=== PATIENT | female | born 1960 | race African-American/Black ===

== ENCOUNTER 2016-10-17 08:54 | Inpatient (IN) | payer MEDICARE, OTHER ==
[~2016-10-17] VITALS: Ht 165.1 cm; Wt 142.9 kg
[~2016-10-17 08:54] MED LIST: ASPI81TA2 PO; ATOR20TA PO; BENA40TA2 PO; BLOO-367 INJ; CLON0.1T PO; FAMO20TA8 PO; FLUT1DIS3 INH; GABA300C PO; HYDR25TA4 PO; Home Oxygen NS; INSU100V13 SQ; INSU100V27 INJ; METF500T4 PO; PRED20TA PO; TIOT18CA3 INH
[2016-10-17] MEDS ORDERED: FUROSEMIDE 20 MG/2 ML VIAL ONE (09:15)
[2016-10-17 09:29] LABS: BASOPHILS % (AUTO) 0.2 % (0.0-2.0); DIFF TOTAL % 100 %; EOSINOPHILS # (AUTO) 0.1 /CMM (0.0-0.7); EOSINOPHILS % (AUTO) 2.2 % (0.0-6.0); HEMATOCRIT 37 % (33-45); HEMOGLOBIN 11.6 g/dL (11.5-14.8); LYMPHOCYTES # (AUTO) 0.9 /CMM (0.8-4.8); LYMPHOCYTES % (AUTO) 13.1 % (20.0-44.0); MEAN CORPUSCULAR HEMOGLOBIN 29 PG (26.0-33.0); MEAN CORPUSCULAR HGB CONC 32 g/dl (31.0-36.0); MEAN CORPUSCULAR VOLUME 90 fL (82-100); MONOCYTES # (AUTO) 0.4 /CMM (0.1-1.30); MONOCYTES % (AUTO) 6.6 % (2.0-12.0); NEUTROPHILS # (AUTO) 5.3 /CMM (1.8-8.9); NEUTROPHILS % (AUTO) 77.9 % (43.0-81.0); PLATELET COUNT (AUTO) 207 /CMM (150-450); RED BLOOD CELL COUNT(AUTO) 4.05 MIL/uL (4.0-5.2); WHITE BLOOD COUNT (AUTO) 6.8 K/uL (4.3-11.0)
[2016-10-17] MEDS ORDERED: FUROSEMIDE 40 MG/4 ML VIAL IV ONE (09:30)
[2016-10-17 09:46] LABS: TROPONIN I < 0.017 ng/mL (0.00-0.056)
[2016-10-17 09:47] LABS: INR 1.01 (0.87-1.13); PROTHROMBIN TIME 10.9 SECS (9.5-12.7)
[2016-10-17 09:51] LABS: ALANINE AMINOTRANSFERASE 16 U/L (12-78); ALBUMIN 3.1 g/dL (3.4-5.0); ANION GAP 5 (5-14); ASPARTATE AMINOTRANSFERASE 20 U/L (15-37); BILIRUBIN,DIRECT 0.1 mg/dL (0.0-0.2); BILIRUBIN,TOTAL 0.2 mg/dL (0.2-1.0); CALCIUM, SERUM 9.1 mg/dL (8.5-10.1); CHLORIDE 97 mmol/L (98-107); CREATININE 0.8 mg/dL (0.6-1.3); GFR 89 mL/min (>60); GLUCOSE 168 mg/dL (74-106); INDIRECT BILIRUBIN 0.1 mg/dL (0.0-1.1); SODIUM SERUM 141 mmol/L (136-145); TOTAL PROTEIN, SERUM 7.3 g/dL (6.4-8.2); UREA NITROGEN, BLOOD 12 mg/dL (7-18)
[2016-10-17 09:56] LABS: CARBON DIOXIDE 41 mmol/L (21-32)
[2016-10-17] MEDS ORDERED: DIPH25CA6 PO (10:11)
[2016-10-17] MEDS ORDERED: MOME13HF2 IH (10:11)
[2016-10-17] MEDS ORDERED: INSU100V27 SQ (10:11)
[2016-10-17] MEDS ORDERED: ALBU18HF2 IH (10:11)
[2016-10-17] MEDS ORDERED: TIOT18CA3 IH (10:11)
[2016-10-17] MEDS ORDERED: FURO20TA4 PO (10:11)
[2016-10-17] MEDS ORDERED: NITROGLYCERIN PACKET 1 GM PACKET ONE (10:28)
[2016-10-17] MEDS ORDERED: NITROGLYCERIN PACKET 1 GM PACKET TD ONE (10:30)
[2016-10-17 10:46] LABS: ABG HCO3 45.3 mmol/L; ABG PCO2 82.1 mmHg (35.0-45.0); ABG PO2 63.4 mmHg (75.0-100.0); ABG TOTAL HEMOGLOBIN 12.7 G/dL (12.0-16.0); ALLEN TEST Pass; AaDO2 39.4 mmHg; O2Hb 89.1 % (94.0-97.0)
[2016-10-17] MEDS ORDERED: diphenhydrAMINE HCL 25 MG CAPSULE PO PRN (11:30)
[2016-10-17] MEDS ORDERED: MAGNESIUM HYDROXIDE 30 ML UDC PO PRN (11:30)
[2016-10-17] MEDS ORDERED: MAG HYDROX/AL HYDROX/SIMETH 30 ML UDC PO PRN (11:30)
[2016-10-17] MEDS ORDERED: HYDROCODONE/APAP 5/325MG 1 EACH TABLET PO PRN (11:30)
[2016-10-17] MEDS ORDERED: Z GUARD REMEDY 2 OZ OINT TP PRN (11:30)
[2016-10-17] MEDS: METFORMIN 500 MG TABLET PO SCH ×2 (11:30→17:00)
[2016-10-17] MEDS ORDERED: ONDANSETRON HCL/PF 4 MG/2 ML VIAL IVP PRN (11:30)
[2016-10-17] MEDS ORDERED: ZOLPIDEM TARTRATE 5 MG TABLET PO PRN (11:30)
[2016-10-17 12:00] VITALS: BP 124/67
[2016-10-17] MEDS ORDERED: BLOOD SUGAR DIAGNOSTIC 1 EACH STRIP IN SCH ×2 (12:00→17:30)
[2016-10-17] MEDS: IPRATROPIUM NEB FS 0.5 MG/2.5 ML AMPUL.NEB NEB SCH ×3 (12:06→20:12)
[2016-10-17] MEDS: ALBUTEROL FS 2.5 MG/0.5 ML VIAL.NEB NEB SCH ×3 (12:06→20:12)
[2016-10-17 12:26] VITALS: BP 124/67
[2016-10-17] MEDS ORDERED: acetaZOLAMIDE 250 MG TABLET PO ONE (13:30)
[2016-10-17] MEDS: INSULIN LISPRO/ASPART 100 UNIT/ML CARTRIDGE SQ SCH ×2 (13:30→17:00)
[2016-10-17] MEDS: ATORVASTATIN 10 MG TABLET PO SCH (13:53)
[2016-10-17] MEDS: ENOXAPARIN SODIUM 40 MG/0.4 ML DISP.SYRIN SQ SCH (13:53)
[2016-10-17] MEDS: GABAPENTIN 300 MG CAPSULE PO SCH ×2 (13:54→17:23)
[2016-10-17] MEDS: ASPIRIN 81 MG TAB.CHEW PO SCH (13:54)
[2016-10-17] MEDS: FUROSEMIDE 40 MG/4 ML VIAL IV SCH ×3 (13:54→17:32)
[2016-10-17] MEDS: PANTOPRAZOLE 40 MG TABLET.DR PO SCH (13:54)
[2016-10-17] MEDS ORDERED: DEXTROSE 50%-WATER 50 ML DISP.SYRIN IV PRN ×3 (15:00→16:00)
[2016-10-17] MEDS ORDERED: *INSULIN REGULAR(HUMULIN R)HUM 100 UNIT/ML VIAL SQ PRN (15:00)
[2016-10-17] MEDS ORDERED: INSULIN REGULAR, HUMAN 100 UNIT/ML 3 ML VIAL SQ PRN ×2 (15:00→16:00)
[2016-10-17 16:00] VITALS: BP 125/79
[2016-10-17 16:53] VITALS: BP 125/79
[2016-10-17] MEDS: ACETAMINOPHEN 325 MG TABLET PO PRN (17:24)
[2016-10-17] MEDS ORDERED: BLOOD SUGAR DIAGNOSTIC 1 EACH STRIP VI SCH (17:30)
[2016-10-17] MEDS: BLOOD SUGAR DIAGNOSTIC 1 EACH STRIP IN SCH ×2 (17:40→22:28)
[2016-10-17 20:00] VITALS: BP 109/72
[2016-10-17] MEDS: INSULIN REGULAR, HUMAN 100 UNIT/ML 3 ML VIAL SQ PRN (22:22)
[2016-10-17] MEDS: INSULIN DETEMIR 100 UNIT/ML CARTRIDGE SQ SCH (22:23)
[2016-10-18] VITALS: BP 141/76
[2016-10-18] MEDS: IPRATROPIUM NEB FS 0.5 MG/2.5 ML AMPUL.NEB NEB SCH ×6 (00:10→20:22)
[2016-10-18] MEDS: ALBUTEROL FS 2.5 MG/0.5 ML VIAL.NEB NEB SCH ×6 (00:10→20:22)
[2016-10-18] MEDS: ACETAMINOPHEN 325 MG TABLET PO PRN ×2 (03:53→18:04)
[2016-10-18 04:00] VITALS: BP 141/84
[2016-10-18] MEDS: PANTOPRAZOLE 40 MG TABLET.DR PO SCH ×2 (06:44→08:36)
[2016-10-18 08:00] VITALS: BP 134/79
[2016-10-18] MEDS: BLOOD SUGAR DIAGNOSTIC 1 EACH STRIP IN SCH ×4 (08:33→21:22)
[2016-10-18] MEDS: FUROSEMIDE 40 MG/4 ML VIAL IV SCH ×2 (08:34→16:45)
[2016-10-18] MEDS: BENAZEPRIL HCL 20 MG TABLET PO SCH (08:35)
[2016-10-18] MEDS: METFORMIN 500 MG TABLET PO SCH ×2 (08:35→16:45)
[2016-10-18] MEDS: ENOXAPARIN SODIUM 40 MG/0.4 ML DISP.SYRIN SQ SCH (08:35)
[2016-10-18] MEDS: ASPIRIN 81 MG TAB.CHEW PO SCH (08:36)
[2016-10-18] MEDS: GABAPENTIN 300 MG CAPSULE PO SCH ×3 (08:36→16:45)
[2016-10-18] MEDS: ATORVASTATIN 10 MG TABLET PO SCH (08:38)
[2016-10-18] MEDS: INSULIN REGULAR, HUMAN 100 UNIT/ML 3 ML VIAL SQ PRN ×2 (08:51→21:23)
[2016-10-18] MEDS: INSULIN LISPRO/ASPART 100 UNIT/ML CARTRIDGE SQ SCH ×3 (08:53→17:00)
[2016-10-18] MEDS: INSULIN DETEMIR 100 UNIT/ML CARTRIDGE SQ SCH ×2 (08:54→20:49)
[2016-10-18 09:16] LABS: BASOPHILS % (AUTO) 0.2 % (0.0-2.0); DIFF TOTAL % 100 %; EOSINOPHILS # (AUTO) 0.1 /CMM (0.0-0.7); HEMATOCRIT 38 % (33-45); HEMOGLOBIN 11.7 g/dL (11.5-14.8); LYMPHOCYTES % (AUTO) 19.7 % (20.0-44.0); MEAN CORPUSCULAR HEMOGLOBIN 28 PG (26.0-33.0); MEAN CORPUSCULAR HGB CONC 31 g/dl (31.0-36.0); MEAN CORPUSCULAR VOLUME 90 fL (82-100); MONOCYTES # (AUTO) 0.5 /CMM (0.1-1.30); MONOCYTES % (AUTO) 9.3 % (2.0-12.0); NEUTROPHILS # (AUTO) 3.4 /CMM (1.8-8.9); NEUTROPHILS % (AUTO) 68.8 % (43.0-81.0); PLATELET COUNT (AUTO) 212 /CMM (150-450); RED BLOOD CELL COUNT(AUTO) 4.19 MIL/uL (4.0-5.2); WHITE BLOOD COUNT (AUTO) 4.9 K/uL (4.3-11.0)
[2016-10-18 09:31] LABS: ALBUMIN 3.1 g/dL (3.4-5.0); BILIRUBIN,TOTAL 0.2 mg/dL (0.2-1.0); CALCIUM, SERUM 9.2 mg/dL (8.5-10.1); CREATININE 0.6 mg/dL (0.6-1.3); PHOSPHORUS 3.9 mg/dL (2.5-4.9); TOTAL PROTEIN, SERUM 7.7 g/dL (6.4-8.2)
[2016-10-18] MEDS: NEOMY SULF/BACITRAC ZN/POLY 15 GM TUBE TP SCH (11:00)
[2016-10-18] MEDS ORDERED: acetaZOLAMIDE 250 MG TABLET PO ONE (12:30)
[2016-10-18 16:00] VITALS: BP 138/86
[2016-10-19] MEDS: ACETAMINOPHEN 325 MG TABLET PO PRN (02:07)
[2016-10-19] MEDS: BLOOD SUGAR DIAGNOSTIC 1 EACH STRIP IN SCH ×2 (07:04→12:23)
[2016-10-19] MEDS: ALBUTEROL FS 2.5 MG/0.5 ML VIAL.NEB NEB SCH ×2 (07:42→11:27)
[2016-10-19] MEDS: IPRATROPIUM NEB FS 0.5 MG/2.5 ML AMPUL.NEB NEB SCH ×2 (07:42→11:27)
[2016-10-19 08:00] VITALS: BP 99/63
[2016-10-19 08:08] VITALS: BP 99/63
[2016-10-19] MEDS: INSULIN LISPRO/ASPART 100 UNIT/ML CARTRIDGE SQ SCH ×2 (09:00→12:23)
[2016-10-19] MEDS: FUROSEMIDE 40 MG/4 ML VIAL IV SCH (09:06)
[2016-10-19] MEDS: METFORMIN 500 MG TABLET PO SCH (09:06)
[2016-10-19] MEDS: ASPIRIN 81 MG TAB.CHEW PO SCH (09:06)
[2016-10-19] MEDS: GABAPENTIN 300 MG CAPSULE PO SCH ×2 (09:08→12:22)
[2016-10-19] MEDS: ATORVASTATIN 10 MG TABLET PO SCH (09:08)
[2016-10-19] MEDS: NEOMY SULF/BACITRAC ZN/POLY 15 GM TUBE TP SCH (09:09)
[2016-10-19] MEDS: ENOXAPARIN SODIUM 40 MG/0.4 ML DISP.SYRIN SQ SCH (09:12)
[2016-10-19] MEDS: INSULIN DETEMIR 100 UNIT/ML CARTRIDGE SQ SCH (09:39)
[2016-10-19 09:49] VITALS: BP 132/82
[2016-10-19] MEDS: BENAZEPRIL HCL 20 MG TABLET PO SCH (09:49)
== END 2016-10-19 15:21 | disposition home or self-care (01) | DRG 291 ==
LOC: ER 08:56 → TELE1 11:04 → MEDSG1 10-18 10:39
PROVIDERS: ADMIT Internal Medicine; ATTEND Internal Medicine
DX: I11.0 Hypertensive heart disease with heart failure (principal); J96.01 Acute respiratory failure with hypoxia; E43 Unspecified severe protein-calorie malnutrition; J44.1 Chronic obstructive pulmonary disease with (acute) exacerbation; Z68.43 Body mass index [BMI] 50.0-59.9, adult; E66.01 Morbid (severe) obesity due to excess calories; E11.9 Type 2 diabetes mellitus without complications; E78.5 Hyperlipidemia, unspecified; Z99.81 Dependence on supplemental oxygen; F17.210 Nicotine dependence, cigarettes, uncomplicated; I50.33 Acute on chronic diastolic (congestive) heart failure
CPT/HCPCS: 36415; 36600; 71010-TC; 80048-TC; 80053-TC; 80061-TC; 80076-TC; 82947-TC; 82962-TC; 83735-TC; 83880; 84100-TC; 84484-TC; 85025-TC; 85730-TC; 93307-TC; 94799-TC; 97001-TC; A4606; J1650; J1815; J1940; Z7610

== ENCOUNTER 2017-01-28 15:58 | Emergency (ER) | payer MEDICARE, OTHER ==
[~2017-01-28] VITALS: Ht 165.1 cm; Wt 149.7 kg
[~2017-01-28 15:58] MED LIST changes: +ALBU18HF2 IH; -CLON0.1T PO; +DIPH25CA6 PO; -FLUT1DIS3 INH; -HYDR25TA4 PO; -INSU100V13 SQ; -INSU100V27 INJ; +INSU100V27 SQ; +INSU100V7 SQ; +MOME13HF2 IH; -PRED20TA PO; +TIOT18CA3 IH; -TIOT18CA3 INH
--- NOTE | 2017-01-28 16:10 | NUR ---
Pt bib self, cc: SOB since yesterday, coughing and congestion, hx of copd productive cough. Placed on monitor. Awaiting md order.
[2017-01-28] MEDS ORDERED: Magnesium 1GM/D5W 100ML PREMIX 200 ML IV ONE ×2 (16:14→16:35)
[2017-01-28] MEDS ORDERED: ALBUTEROL FS 2.5 MG/3 ML VIAL.NEB ONE (16:15)
[2017-01-28] MEDS ORDERED: IPRATROPIUM NEB FS 0.5 MG/2.5 ML AMPUL.NEB ONE (16:15)
--- NOTE | 2017-01-28 16:15 | NUR ---
RWIRST #18 IV ACCESS. BLOOD SAMPLE COLLECTED SENT TO LAB
[2017-01-28] MEDS ORDERED: ALBUTEROL FS 2.5 MG/3 ML VIAL.NEB NEB ONE (16:30)
[2017-01-28] MEDS ORDERED: methylPREDNISolone SOD SUCC 125 MG/2ML VIAL IV ONE (16:30)
[2017-01-28] MEDS ORDERED: IPRATROPIUM NEB FS 0.5 MG/2.5 ML AMPUL.NEB NEB ONE (16:30)
[2017-01-28] MEDS ORDERED: IV SET PRIMARY PUMP SET 1 EA INFUS.SET MC ONE ×2 (16:34→17:13)
[2017-01-28] MEDS ORDERED: methylPREDNISolone SOD SUCC 125 MG/2ML VIAL ONE (16:34)
[2017-01-28 16:41] LABS: BASOPHILS % (AUTO) 0.4 % (0.0-2.0); EOSINOPHILS # (AUTO) 0.3 /CMM (0.0-0.7); EOSINOPHILS % (AUTO) 3.6 % (0.0-6.0); HEMATOCRIT 37 % (33-45); HEMOGLOBIN 11.6 g/dL (11.5-14.8); LYMPHOCYTES % (AUTO) 21.9 % (20.0-44.0); MEAN CORPUSCULAR HEMOGLOBIN 29 PG (26.0-33.0); MEAN CORPUSCULAR HGB CONC 32 g/dl (31.0-36.0); MEAN CORPUSCULAR VOLUME 91 fL (82-100); MONOCYTES # (AUTO) 0.4 /CMM (0.1-1.30); MONOCYTES % (AUTO) 4.6 % (2.0-12.0); NEUTROPHILS # (AUTO) 6.2 /CMM (1.8-8.9); NEUTROPHILS % (AUTO) 69.5 % (43.0-81.0); PLATELET COUNT (AUTO) 211 /CMM (150-450); RDW COEFFICIENT OF VARIATION 16.6 (11.5-15.0); WHITE BLOOD COUNT (AUTO) 8.9 K/uL (4.3-11.0)
--- NOTE | 2017-01-28 16:46 | NUR ---
XRAY AT BEDSIDE
[2017-01-28 16:52] LABS: CALCIUM, SERUM 8.8 mg/dL (8.5-10.1); CREATININE 0.8 mg/dL (0.6-1.3); POTASSIUM 3.8 mmol/L (3.5-5.1)
[2017-01-28] MEDS ORDERED: AZITHROMYCIN 250 MG TABLET PO ONE (17:00)
[2017-01-28] MEDS ORDERED: AZITHROMYCIN 250 MG TABLET ONE (17:17)
--- NOTE | 2017-01-28 17:53 | NUR ---
Patient discharged to home in stable condition. Written and verbal after care instructions given. Patient verbalizes understanding of instruction. Prescription given to patient.
--- NOTE | 2017-01-28 17:53 | NUR ---
IV removed. Catheter intact and site benign. Pressure and 4x4 applied to site. No bleeding noted.
[2017-01-28 17:54] VITALS: BP 131/83
== END 2017-01-28 17:55 | disposition home or self-care (01) ==
LOC: ER 16:01
DX: J44.1 Chronic obstructive pulmonary disease with (acute) exacerbation (principal); I10 Essential (primary) hypertension; E11.9 Type 2 diabetes mellitus without complications; E66.01 Morbid (severe) obesity due to excess calories; F17.210 Nicotine dependence, cigarettes, uncomplicated; Z79.4 Long term (current) use of insulin; Z79.82 Long term (current) use of aspirin
CPT/HCPCS: 36415; 71010; 80048; 85025; 93005; 94644; 96361; 96374; 99285; A4606; J2930; J3475; Z7610

== ENCOUNTER 2017-03-12 17:40 | Inpatient (IN) | payer MEDICARE, OTHER ==
[~2017-03-12] VITALS: Ht 165.1 cm; Wt 146.1 kg
--- NOTE | 2017-03-12 04:00 | NUR ---
tele/rn notes PATIENT REFUSED TO HAVE IV REINSERTION AT THIS TIME STATED WOULD LIKE TO HAVE IT DONE LATER AFTER BREAKFAST.
[2017-03-12] MEDS ORDERED: FUROSEMIDE 100 MG/10 ML VIAL ONE (17:54)
[2017-03-12] MEDS ORDERED: FUROSEMIDE 40 MG/4 ML VIAL IV ONE (18:00)
--- NOTE | 2017-03-12 18:05 | NUR ---
PT PRESENTS TO ER C/O FEELING WEAK AND SHAKY S/P GLF TODAY, ATRAUMATIC. PT ALSO FEELS SOB WITH MORE O2 USAGE THAN USUAL. ON 2L AT BASELINE. RESP EVEN BUT LABORED. O2 SAT 99% ON 6L VIA NC. REPORTS TROUBLE BREATHING WHILE LYING DOWN. PT HAS GENERALIZED EDEMA. DENIES PAIN. DENIES N/V/D. IN ER BED 12 ON MONITOR.
[2017-03-12 18:16] LABS: CHLORIDE 100 mmol/L (98-107); CREATININE 0.9 mg/dL (0.6-1.3); GLUCOSE 116 mg/dL (74-106); POTASSIUM 3.7 mmol/L (3.5-5.1); SODIUM SERUM 142 mmol/L (136-145); UREA NITROGEN, BLOOD 14 mg/dL (7-18)
[2017-03-12 18:18] LABS: INR 0.96 (0.87-1.13)
[2017-03-12 18:24] LABS: TROPONIN I < 0.017 ng/mL (0.00-0.056)
[2017-03-12 18:33] LABS: BASOPHILS # (AUTO) 0.1 /CMM (0.0-0.2); BASOPHILS % (AUTO) 1.1 % (0.0-2.0); EOSINOPHILS # (AUTO) 0.3 /CMM (0.0-0.7); EOSINOPHILS % (AUTO) 3.5 % (0.0-6.0); HEMATOCRIT 40 % (33-45); HEMOGLOBIN 12.8 g/dL (11.5-14.8); LYMPHOCYTES # (AUTO) 1.6 /CMM (0.8-4.8); LYMPHOCYTES % (AUTO) 21.8 % (20.0-44.0); MEAN CORPUSCULAR HEMOGLOBIN 29 PG (26.0-33.0); MEAN CORPUSCULAR HGB CONC 32 g/dl (31.0-36.0); MEAN CORPUSCULAR VOLUME 91 fL (82-100); MONOCYTES # (AUTO) 0.4 /CMM (0.1-1.30); MONOCYTES % (AUTO) 5.1 % (2.0-12.0); NEUTROPHILS % (AUTO) 68.5 % (43.0-81.0); PLATELET COUNT (AUTO) 171 /CMM (150-450); RDW COEFFICIENT OF VARIATION 15.8 (11.5-15.0); RED BLOOD CELL COUNT(AUTO) 4.41 MIL/uL (4.0-5.2); WHITE BLOOD COUNT (AUTO) 7.4 K/uL (4.3-11.0)
--- NOTE | 2017-03-12 18:33 | NUR ---
SANTIAGO CATH 16FR INSERTED. 70ML CLEAR YELLOW URINE DRAINED IMMEDIATELY. SAMPLE COLLECTED.
[2017-03-12 18:34] LABS: CALCIUM, SERUM 9.1 mg/dL (8.5-10.1)
[2017-03-12 18:37] LABS: CARBON DIOXIDE 43 mmol/L (21-32)
[2017-03-12] MEDS ORDERED: CT SWABBABLE VALVE TRANS SET 1 EA INFUS.SET MC ONE (19:19)
[2017-03-12] MEDS ORDERED: IV NS 0.9% 250 ML IV ONE (19:19)
[2017-03-12] MEDS ORDERED: IOHEXOL-350 100 ML VIAL IV ONE (19:19)
--- NOTE | 2017-03-12 19:40 | NUR ---
RESTING QUIETLY, NAD NOTED. AWAITING CT. ALL NEEDS ATTENDED TO.
--- NOTE | 2017-03-12 19:53 | NUR ---
PT TRANSPORTED TO CT IN STABLE CONDITION
--- NOTE | 2017-03-12 21:25 | NUR ---
RETING QUIETLY, NAD NOTED. O2 REDUCED TO 4L. NAD NOTED.
--- NOTE | 2017-03-12 21:41 | NUR ---
REPORT GIVEN TO LINDA WORTHINGTON FOR ADMISSION
--- NOTE | 2017-03-12 22:21 | NUR ---
PAGED POUCH MAKING MACHINE OPERATOR FOR PANEL DR NATARAJAN
--- NOTE | 2017-03-12 22:26 | NUR ---
DR LEON ON PHONE WITH DR NATARAJAN
[2017-03-12 22:30] VITALS: BP 131/71
--- NOTE | 2017-03-12 22:30 | NUR ---
tele/tn notes PATIENT RECEIVED ON A GURNEY , ALERT, ORIENTED X3 CAN TRANSFER TO [facility] TO BED W ASSISTANCE. ABLE TO VERBALIZE NEEDS AND ON TELE MONITORING AT SR 94. MONITORING FOR ANY S/S OF SOB OR DISTRESS. ON 4L OXYGEN VIA NC AT 98%. ON SANTIAGO CATHETER W/ OUTPUT 1425 W/ CLEAR YELLOW URINE COLOR. PATIENT W/ DX OF CHF EXACERBATION W/ GLF/ W/ HX OF NEUROPATHY, HTN, COPD, DM, CHF.ROOM ORIENTATION. BELONGINGS CHECKED. OBSERVED SWOLLEN BLE ANKLE SWOLLEN. MORBID OBESE. WILL CONTINUE TO MONITOR.
--- NOTE | 2017-03-12 22:35 | NUR ---
PT TRANSPORTED TO [facility] IN STABLE CONDITION VIA ACLS PROTOCOL. VSS. NAD NOTED.
[2017-03-12 23:00] VITALS: BP_SYST 131; BP_SYST 146; BP_DIAS 69; BP_DIAS 71
[2017-03-12] MEDS ORDERED: ALBUTEROL FS 2.5 MG/0.5 ML VIAL.NEB NEB ONE (23:00)
[2017-03-12] MEDS ORDERED: IPRATROPIUM NEB FS 0.5 MG/2.5 ML AMPUL.NEB NEB ONE (23:00)
[2017-03-12 23:06] LABS: ALBUMIN 3.5 g/dL (3.4-5.0); BILIRUBIN,DIRECT 0.1 mg/dL (0.0-0.2); BILIRUBIN,TOTAL 0.2 mg/dL (0.2-1.0); TOTAL PROTEIN, SERUM 7.8 g/dL (6.4-8.2)
[2017-03-12] MEDS ORDERED: MORPHINE SULFATE INJ 2 MG/ML DISP.SYRIN IV PRN (23:30)
[2017-03-12] MEDS ORDERED: HYDROCODONE/APAP 5/325MG 1 EACH TABLET PO PRN (23:30)
[2017-03-12] MEDS ORDERED: LEVOFLOXACIN 750 MG /D5W 150ML 750 MG in PREMIX 1 EA IV SCH (23:30)
[2017-03-12] MEDS ORDERED: *INSULIN REGULAR(HUMULIN R)HUM 100 UNIT/ML VIAL SQ PRN (23:30)
[2017-03-12] MEDS: INSULIN DETEMIR 100 UNIT/ML CARTRIDGE SQ SCH (23:30)
[2017-03-12] MEDS ORDERED: ENOXAPARIN SODIUM 40 MG/0.4 ML DISP.SYRIN SQ SCH (23:30)
[2017-03-12] MEDS ORDERED: MAGNESIUM HYDROXIDE 30 ML UDC PO PRN (23:30)
[2017-03-12] MEDS ORDERED: IPRATROPIUM NEB FS 0.5 MG/2.5 ML AMPUL.NEB NEB PRN (23:30)
[2017-03-12] MEDS: GABAPENTIN 300 MG CAPSULE PO SCH (23:30)
[2017-03-12] MEDS ORDERED: DEXTROSE 50%-WATER 50 ML DISP.SYRIN IV PRN (23:30)
[2017-03-12] MEDS ORDERED: ONDANSETRON HCL/PF 4 MG/2 ML VIAL IVP PRN (23:30)
[2017-03-12] MEDS ORDERED: ALBUTEROL FS 2.5 MG/3 ML VIAL.NEB NEB PRN (23:30)
[2017-03-12] MEDS ORDERED: ENOXAPARIN SODIUM 40 MG/0.4 ML DISP.SYRIN SQ ONE (23:50)
[2017-03-13] VITALS (7 sets, daily range): BP systolic 123–146; BP diastolic 56–79
[2017-03-13] MEDS: BLOOD SUGAR DIAGNOSTIC 1 EACH STRIP IN SCH ×5 (00:06→21:07)
[2017-03-13] MEDS ORDERED: LEVOFLOXACIN 750 MG /D5W 150ML 150 ML IV ONE (00:23)
[2017-03-13] MEDS ORDERED: IV SET PRIMARY PUMP SET 1 EA INFUS.SET MC ONE (00:47)
[2017-03-13] MEDS ORDERED: IV NS 0.9% 100 ML IV ONE (00:47)
[2017-03-13] MEDS ORDERED: SECONDARY IV SET 1 EA INFUS.SET MC ONE ×2 (00:47→12:00)
--- NOTE | 2017-03-13 01:00 | NUR ---
TELE/RN NOTES MD MADE ROUNDS , PATIENT WAS SEEN DISCUSSED CARE. MD WAS MADE AWARE THAT COVERAGE FOR INSULIN WAS WITHELD PER PATIENT REQUEST, AND LEVEMIR.PATIENT REFUSED TO TAKE ORAL PILL OF GABAPENTIN. ALTHOUGH PATIENT RECEIVED LOVENOX INJECTION AND RECEIVED IV ATB FOR TONIGHT. SANTIAGO TO BE KEPT FOR THE NIGHT AND WILL CHECK IN AM.
--- NOTE | 2017-03-13 03:34 | NUR ---
MS/RN NOTES PATIENT REFUSE TO HAVE IV FLUIDS BUT PREFER TO DRINK WATER.
--- NOTE | 2017-03-13 03:36 | NUR ---
TELE/RN NOTES PATIENT RFA IV SITE INFILTRATED. REMOVE AND ELEVATED RIGHT ARM. PROVIDED COOLING MEASURES.WILL INSERT IV.
--- NOTE | 2017-03-13 04:23 | NUR ---
TELE/RN NOTES PATIENT REQUESTING FOR SLEEP MED , INFORMED THAT MEDICATION FOR SLEEP TO BE TAKEN BEFORE 0200 . AGREED AND KEPT ROOM QUIET AND SAID WILL TRY TO SLEEP.
[2017-03-13] MEDS ORDERED: ACETAMINOPHEN 325 MG TABLET ONE (05:59)
[2017-03-13] MEDS: ACETAMINOPHEN 325 MG TABLET PO PRN (06:05)
--- NOTE | 2017-03-13 06:09 | NUR ---
TELE/TN NOTES PATIENT VERBALIZED PAIN IN BACK. REPOSTIONED FOR COMFORTY. KEPT COMFORTABLE TYLENOL PROVIDED. WILL CONTINUE TO MONITOR FOR PAIN AND EFFECTIVENESS.INFORMED BED TOO SOFT WILL F/U BED FOR PATIENT .
--- NOTE | 2017-03-13 06:35 | NUR ---
TELE/RN CLOSING NOTES PATIENT IN BED, AWAKE, ALERT X3. ABLE TO VERBALIZE NEEDS. REQUIRE ASSISTANCE AND INFORMED ABOUT MEDICATION. NO COMPLAIN OF PAIN AT THIS TIME. WILL ENDORSE TO AM RN FOR BRYAN.
[2017-03-13 07:13] LABS: THYROID STIMULATING HORMONE 4.757 uIU/mL (0.358-3.74)
--- NOTE | 2017-03-13 07:15 | NUR ---
received pt in bed ,no c/o pain,no s/s of distress.breathing even and unlabored.pt refused to have i.v access at this as per production supervisor off shift.able to verbalize needs.safety measures in place.bed in low and locked position.will continue to monitor for changes.
[2017-03-13 07:18] LABS: ALBUMIN 3.2 g/dL (3.4-5.0); BILIRUBIN,TOTAL 0.3 mg/dL (0.2-1.0); CALCIUM, SERUM 8.9 mg/dL (8.5-10.1); CREATININE 0.6 mg/dL (0.6-1.3); MAGNESIUM 1.7 mg/dL (1.8-2.4); PHOSPHORUS 4.2 mg/dL (2.5-4.9); POTASSIUM 4.2 mmol/L (3.5-5.1); TOTAL PROTEIN, SERUM 7.3 g/dL (6.4-8.2)
[2017-03-13 07:27] LABS: BASOPHILS % (AUTO) 0.4 % (0.0-2.0); EOSINOPHILS # (AUTO) 0.2 /CMM (0.0-0.7); EOSINOPHILS % (AUTO) 3.4 % (0.0-6.0); HEMATOCRIT 38 % (33-45); HEMOGLOBIN 12.1 g/dL (11.5-14.8); LYMPHOCYTES # (AUTO) 1.3 /CMM (0.8-4.8); LYMPHOCYTES % (AUTO) 20.3 % (20.0-44.0); MEAN CORPUSCULAR HEMOGLOBIN 30 PG (26.0-33.0); MEAN CORPUSCULAR HGB CONC 32 g/dl (31.0-36.0); MEAN CORPUSCULAR VOLUME 93 fL (82-100); MONOCYTES # (AUTO) 0.4 /CMM (0.1-1.30); MONOCYTES % (AUTO) 6.1 % (2.0-12.0); NEUTROPHILS # (AUTO) 4.5 /CMM (1.8-8.9); NEUTROPHILS % (AUTO) 69.8 % (43.0-81.0); PLATELET COUNT (AUTO) 171 /CMM (150-450); RDW COEFFICIENT OF VARIATION 17.3 (11.5-15.0); RED BLOOD CELL COUNT(AUTO) 4.09 MIL/uL (4.0-5.2); WHITE BLOOD COUNT (AUTO) 6.5 K/uL (4.3-11.0)
[2017-03-13] MEDS ORDERED: INSULIN GLARGINE HUM REC ANLOG 70 UNIT SQ SCH (09:00)
[2017-03-13] MEDS: FLUTICASONE/SALMETEROL DISKUS IH SCH ×2 (09:00→20:37)
[2017-03-13] MEDS ORDERED: [UNRECOGNIZED DRUG - OTHER] NS SCH (09:00)
[2017-03-13] MEDS ORDERED: ALBUTEROL SULFATE 8 GM HFA.AER.AD IH PRN (09:00)
[2017-03-13] MEDS: ASPIRIN 81 MG TAB.CHEW PO SCH (09:46)
[2017-03-13] MEDS: PANTOPRAZOLE 40 MG TABLET.DR PO SCH (09:47)
[2017-03-13] MEDS: DOCUSATE SODIUM 100 MG CAPSULE PO SCH ×2 (09:47→17:18)
[2017-03-13] MEDS: DILTIAZEM HCL CD 120 MG PO SCH (09:47)
[2017-03-13] MEDS: BENAZEPRIL HCL 20 MG TABLET PO SCH (09:47)
[2017-03-13] MEDS: GABAPENTIN 300 MG CAPSULE PO SCH ×3 (09:48→17:18)
[2017-03-13] MEDS: METFORMIN 500 MG TABLET PO SCH ×2 (09:48→17:00)
[2017-03-13] MEDS: FAMOTIDINE (20 MG) 20 MG TABLET PO SCH (10:12)
[2017-03-13] MEDS: INSULIN DETEMIR 100 UNIT/ML CARTRIDGE SQ SCH ×2 (11:30→23:30)
[2017-03-13] MEDS ORDERED: BLOOD SUGAR DIAGNOSTIC 1 EACH STRIP IN SCH (12:00)
[2017-03-13] MEDS: Magnesium 1GM/D5W 100ML PREMIX 100 ML IV SCH ×2 (12:00→13:35)
[2017-03-13] MEDS: methylPREDNISolone SOD SUCC 40 MG/ML VIAL IV SCH ×3 (12:04→20:37)
[2017-03-13] MEDS: INSULIN REGULAR, HUMAN 100 UNIT/ML 3 ML VIAL SQ PRN (12:30)
[2017-03-13] MEDS: INSULIN LISPRO/ASPART 100 UNIT/ML CARTRIDGE SQ SCH ×2 (12:35→17:26)
[2017-03-13] MEDS: diphenhydrAMINE HCL 25 MG CAPSULE PO PRN (15:32)
--- NOTE | 2017-03-13 19:23 | NUR ---
tele/rn opening notes Patient in bed, hob elevate. Asleep but arousable. tele reading at SR 93. able to verbalize needs and cooperative to care. received endorsement from am rn regarding plan of care. bed in lock position. call lights within reach. fluids within reach.
--- NOTE | 2017-03-13 19:25 | NUR ---
Pt in stable condition.All m.d orders noted and carried out.no sudden changes
[2017-03-13] MEDS: ENOXAPARIN SODIUM 40 MG/0.4 ML DISP.SYRIN SQ SCH (20:43)
[2017-03-13] MEDS: ATORVASTATIN 10 MG TABLET PO SCH (21:03)
[2017-03-13] MEDS: LEVOFLOXACIN (750 MG) 750 MG TABLET PO SCH (21:03)
--- NOTE | 2017-03-13 21:39 | NUR ---
ms/rn notes patient md to contact for patient levemir order at 70u. bs for tonight at 174 and patient would like to take 50unit lememir instead of 70unit for tonight. md to contact.
[2017-03-13] MEDS ORDERED: LEVOFLOXACIN 750 MG /D5W 150ML 750 MG in PREMIX 1 EA IV SCH (23:00)
--- NOTE | 2017-03-13 23:10 | NUR ---
ms/rn notes patient refused to have iv reinserted tonight and prefer to have po instead for solumedrol.
--- NOTE | 2017-03-14 05:54 | NUR ---
MS/RN notes patient verbalized needs tfor d/c plans as soon as md order. requet for neurologist comsult for jerlimg ,ovzenaida and shoe parts caser for safety to home.
[2017-03-14 06:21] LABS: BASOPHILS % (AUTO) 0.2 % (0.0-2.0); HEMATOCRIT 41 % (33-45); LYMPHOCYTES # (AUTO) 0.7 /CMM (0.8-4.8); LYMPHOCYTES % (AUTO) 9.2 % (20.0-44.0); MEAN CORPUSCULAR HEMOGLOBIN 30 PG (26.0-33.0); MEAN CORPUSCULAR HGB CONC 32 g/dl (31.0-36.0); MEAN CORPUSCULAR VOLUME 93 fL (82-100); MONOCYTES # (AUTO) 0.1 /CMM (0.1-1.30); MONOCYTES % (AUTO) 0.9 % (2.0-12.0); NEUTROPHILS # (AUTO) 6.7 /CMM (1.8-8.9); NEUTROPHILS % (AUTO) 89.7 % (43.0-81.0); PLATELET COUNT (AUTO) 191 /CMM (150-450); RDW COEFFICIENT OF VARIATION 16.8 (11.5-15.0); RED BLOOD CELL COUNT(AUTO) 4.38 MIL/uL (4.0-5.2); WHITE BLOOD COUNT (AUTO) 7.4 K/uL (4.3-11.0)
--- NOTE | 2017-03-14 06:30 | NUR ---
ms/rn closing notes Patient in hob elevated.awake, alert x4. able to verbalize needs at all times. no sob or distress observed during the night but require oxygen 3 liter to keep oxygen rate at 97% will endorse to am rn plan of care.bed in lock position. assist at all times.
[2017-03-14] MEDS: BLOOD SUGAR DIAGNOSTIC 1 EACH STRIP IN SCH ×4 (06:48→22:05)
[2017-03-14 06:51] LABS: TROPONIN I < 0.017 ng/mL (0.00-0.056)
[2017-03-14] MEDS: INSULIN REGULAR, HUMAN 100 UNIT/ML 3 ML VIAL SQ PRN ×4 (07:02→22:25)
[2017-03-14 07:05] LABS: ALANINE AMINOTRANSFERASE 15 U/L (12-78); ALBUMIN 3.2 g/dL (3.4-5.0); ALKALINE PHOSPHATASE 63 U/L (46-116); ASPARTATE AMINOTRANSFERASE 15 U/L (15-37); BILIRUBIN,TOTAL 0.2 mg/dL (0.2-1.0); CALCIUM, SERUM 9.2 mg/dL (8.5-10.1); CARBON DIOXIDE 39 mmol/L (21-32); CHLORIDE 99 mmol/L (98-107); CREATININE 0.6 mg/dL (0.6-1.3); GLUCOSE 258 mg/dL (74-106); MAGNESIUM 2.5 mg/dL (1.8-2.4); PHOSPHORUS 4.2 mg/dL (2.5-4.9); SODIUM SERUM 141 mmol/L (136-145); TOTAL PROTEIN, SERUM 7.6 g/dL (6.4-8.2); UREA NITROGEN, BLOOD 16 mg/dL (7-18)
--- NOTE | 2017-03-14 07:20 | NUR ---
MS RN INITIAL NOTE REPORT RECEIVED AT THE BEDSIDE. PATIENT IS RESTING COMFORTABLY IN BED. NO SOB OR DISTRESS NOTED AT THIS TIME. PATIENT DOES NOT APPEAR TO BE IN PAIN, NO FACIAL GRIMACE NOTED. BED IN A LOW POSITION, CALL LIGHT WITHIN PATIENT REACH. WILL CONTINUE TO MONITOR.
[2017-03-14] MEDS: METFORMIN 500 MG TABLET PO SCH ×2 (07:55→16:02)
[2017-03-14] MEDS: DOCUSATE SODIUM 100 MG CAPSULE PO SCH ×2 (07:55→16:02)
[2017-03-14 08:00] VITALS: BP 126/77
[2017-03-14] MEDS: ASPIRIN 81 MG TAB.CHEW PO SCH (08:15)
[2017-03-14] MEDS: DILTIAZEM HCL CD 120 MG PO SCH (08:16)
[2017-03-14] MEDS: GABAPENTIN 300 MG CAPSULE PO SCH ×3 (08:16→17:01)
[2017-03-14] MEDS: BENAZEPRIL HCL 20 MG TABLET PO SCH (08:17)
[2017-03-14] MEDS: predniSONE 10 MG TABLET PO SCH ×2 (08:17→20:54)
[2017-03-14] MEDS: PANTOPRAZOLE 40 MG TABLET.DR PO SCH (08:17)
[2017-03-14] MEDS: FAMOTIDINE (20 MG) 20 MG TABLET PO SCH (08:17)
[2017-03-14] MEDS: FLUTICASONE/SALMETEROL DISKUS IH SCH ×2 (08:18→21:02)
[2017-03-14] MEDS: INSULIN LISPRO/ASPART 100 UNIT/ML CARTRIDGE SQ SCH ×3 (08:20→17:03)
[2017-03-14] MEDS ORDERED: diphenhydrAMINE HCL 25 MG CAPSULE PO ONE (10:00)
[2017-03-14] MEDS: INSULIN DETEMIR 100 UNIT/ML CARTRIDGE SQ SCH ×2 (12:06→22:24)
--- NOTE | 2017-03-14 12:15 | NUR ---
RN NOTE PER PATIENT REQUEST. GAVE ONLY 60UNITS OF LEVEMIR RATHER THAN THE ORDERED 70.
[2017-03-14] MEDS: ACETAMINOPHEN 325 MG TABLET PO PRN (13:34)
[2017-03-14] MEDS: IPRATROPIUM NEB FS 0.5 MG/2.5 ML AMPUL.NEB NEB SCH ×2 (15:09→19:17)
[2017-03-14] MEDS: ALBUTEROL FS 2.5 MG/3 ML VIAL.NEB NEB SCH ×2 (15:09→19:17)
[2017-03-14 16:00] VITALS: BP 130/71
--- NOTE | 2017-03-14 18:53 | NUR ---
MS RN CLOSING NOTES NO SIGNIFICANT CHANGES IN PATIENT CONDITION THROUGHOUT THE SHIFT. NO SOB OR DISTRESS NOTED AT THIS TIME. PATIENT DENIES PAIN. BED IN A LOW POSITION, CALL LIGHT WITHIN PATIENT REACH. WILL ENDORSE FOR BRYAN.
--- NOTE | 2017-03-14 20:15 | NUR ---
MS RN INITIAL NOTE RECEIVED PATIENT IN ROOM PATIENT IS RESTING COMFORTABLY IN BED. ALERT AWAKE, NO SOB OR DISTRESS NOTED AT THIS TIME. PATIENT DOES NOT APPEAR TO BE IN PAIN, NO FACIAL GRIMACE NOTED. BED IN A LOW POSITION, CALL LIGHT WITHIN PATIENT REACH. WILL CONTINUE TO MONITOR.FOR SAFETY AND FALL PRECAUTIONS.
[2017-03-14 20:43] VITALS: BP 126/76
[2017-03-14] MEDS: diphenhydrAMINE HCL 25 MG CAPSULE PO PRN (20:54)
[2017-03-14] MEDS: ATORVASTATIN 10 MG TABLET PO SCH (20:54)
[2017-03-14] MEDS: LEVOFLOXACIN (750 MG) 750 MG TABLET PO SCH (20:54)
[2017-03-14] MEDS: ENOXAPARIN SODIUM 40 MG/0.4 ML DISP.SYRIN SQ SCH (20:55)
[2017-03-15] MEDS: diphenhydrAMINE HCL 25 MG CAPSULE PO PRN (00:11)
[2017-03-15] MEDS ORDERED: SECONDARY IV SET 1 EA INFUS.SET MC ONE (00:40)
[2017-03-15] MEDS: INSULIN REGULAR, HUMAN 100 UNIT/ML 3 ML VIAL SQ PRN ×2 (06:51→11:50)
[2017-03-15 06:54] LABS: BASOPHILS % (AUTO) 0.6 % (0.0-2.0); EOSINOPHILS % (AUTO) 0.1 % (0.0-6.0); HEMATOCRIT 39 % (33-45); HEMOGLOBIN 12.2 g/dL (11.5-14.8); LYMPHOCYTES % (AUTO) 14.6 % (20.0-44.0); MEAN CORPUSCULAR HEMOGLOBIN 30 PG (26.0-33.0); MEAN CORPUSCULAR HGB CONC 32 g/dl (31.0-36.0); MEAN CORPUSCULAR VOLUME 94 fL (82-100); MONOCYTES # (AUTO) 0.3 /CMM (0.1-1.30); MONOCYTES % (AUTO) 4.6 % (2.0-12.0); NEUTROPHILS # (AUTO) 5.7 /CMM (1.8-8.9); NEUTROPHILS % (AUTO) 80.1 % (43.0-81.0); PLATELET COUNT (AUTO) 184 /CMM (150-450); RDW COEFFICIENT OF VARIATION 16.8 (11.5-15.0); RED BLOOD CELL COUNT(AUTO) 4.13 MIL/uL (4.0-5.2); WHITE BLOOD COUNT (AUTO) 7.1 K/uL (4.3-11.0)
[2017-03-15 07:09] LABS: CALCIUM, SERUM 9.7 mg/dL (8.5-10.1); CREATININE 0.6 mg/dL (0.6-1.3); POTASSIUM 5.4 mmol/L (3.5-5.1)
--- NOTE | 2017-03-15 07:10 | NUR ---
MS RN INITIAL NOTES REPORT RECEIVED AT THE BEDSIDE. PATIENT IS RESTING COMFORTABLY IN BED. NO SOB OR DISTRESS NOTED AT THIS TIME. PATIENT DENIES PAIN. BED IN A LOW POSITION, CALL LIGHT WITHIN PATIENT REACH. WILL CONTINUE TO MONITOR.
[2017-03-15] MEDS: BLOOD SUGAR DIAGNOSTIC 1 EACH STRIP IN SCH ×2 (07:33→11:50)
[2017-03-15 08:00] VITALS: BP 129/79
[2017-03-15] MEDS: IPRATROPIUM NEB FS 0.5 MG/2.5 ML AMPUL.NEB NEB SCH ×2 (08:06→11:25)
[2017-03-15] MEDS: ALBUTEROL FS 2.5 MG/3 ML VIAL.NEB NEB SCH ×2 (08:06→11:25)
[2017-03-15 08:11] VITALS: BP 129/79
[2017-03-15] MEDS: BENAZEPRIL HCL 20 MG TABLET PO SCH (08:11)
[2017-03-15] MEDS: predniSONE 10 MG TABLET PO SCH (08:11)
[2017-03-15] MEDS: FAMOTIDINE (20 MG) 20 MG TABLET PO SCH (08:11)
[2017-03-15] MEDS: DILTIAZEM HCL CD 120 MG PO SCH (08:11)
[2017-03-15] MEDS: ASPIRIN 81 MG TAB.CHEW PO SCH (08:11)
[2017-03-15] MEDS: GABAPENTIN 300 MG CAPSULE PO SCH ×2 (08:11→11:57)
[2017-03-15] MEDS: METFORMIN 500 MG TABLET PO SCH (08:11)
[2017-03-15] MEDS: PANTOPRAZOLE 40 MG TABLET.DR PO SCH (08:11)
[2017-03-15] MEDS: FLUTICASONE/SALMETEROL DISKUS IH SCH (08:12)
[2017-03-15] MEDS: DOCUSATE SODIUM 100 MG CAPSULE PO SCH (08:12)
[2017-03-15] MEDS: INSULIN LISPRO/ASPART 100 UNIT/ML CARTRIDGE SQ SCH ×2 (08:17→11:54)
[2017-03-15] MEDS ORDERED: DILT120C87 PO (08:43)
[2017-03-15] MEDS ORDERED: FLUT1DIS28 IH (08:43)
[2017-03-15] MEDS ORDERED: PRED10TA PO (08:43)
[2017-03-15] MEDS ORDERED: Blood Sugar Diagnostic IN (08:43)
[2017-03-15] MEDS ORDERED: ALBUT2 NEB (08:43)
[2017-03-15] MEDS ORDERED: IPRA0.2S9 NEB (08:43)
[2017-03-15] MEDS: INSULIN DETEMIR 100 UNIT/ML CARTRIDGE SQ SCH (11:53)
--- NOTE | 2017-03-15 13:13 | NUR ---
RN NOTES REPORT CALLED TO ELIN BURGESS AT [facility].
--- NOTE | 2017-03-15 15:07 | NUR ---
MS [facility] NOTE DISCHARGE INSTRUCTIONS GIVEN TO THE PATIENT AND ABLE TO UNDERSTAND. ALL PAPERWORK SIGNED AND BELONGINGS ACCOUNTED FOR. NO SOB OR DISTRESS NOTED AT THIS TIME. PATIENT DENIES PAIN. PATIENT IS TO BE DISCHARGED TO [facility]. ALL BELONGINGS WERE TAKEN HOME BY THE PATIENT'S DAUGHTER. REPORT CALLED TO JENIFER AT [facility]. PATIENT LEFT IN STABLE CONDITION, ACCOMPANIED BY TWO PLASTIC PARTS DESIGNER.
== END 2017-03-15 14:40 | DRG 291 ==
LOC: ER 17:42 → TELE 22:35 → MED 03-13 21:21
PROVIDERS: ADMIT Internal Medicine; ATTEND Internal Medicine
DX: I11.0 Hypertensive heart disease with heart failure (principal); J96.22 Acute and chronic respiratory failure with hypercapnia; J96.21 Acute and chronic respiratory failure with hypoxia; J44.1 Chronic obstructive pulmonary disease with (acute) exacerbation; E66.2 Morbid (severe) obesity with alveolar hypoventilation; E44.1 Mild protein-calorie malnutrition; J44.0 Chronic obstructive pulmonary disease with (acute) lower respiratory infection; Z68.43 Body mass index [BMI] 50.0-59.9, adult; I50.33 Acute on chronic diastolic (congestive) heart failure; F17.210 Nicotine dependence, cigarettes, uncomplicated; E11.65 Type 2 diabetes mellitus with hyperglycemia; E78.5 Hyperlipidemia, unspecified; E83.42 Hypomagnesemia; Z79.4 Long term (current) use of insulin; Z91.19 Patient's noncompliance with other medical treatment and regimen; M19.90 Unspecified osteoarthritis, unspecified site; J20.9 Acute bronchitis, unspecified; R53.1 Weakness; Z91.81 History of falling; E88.09 Other disorders of plasma-protein metabolism, not elsewhere classified
CPT/HCPCS: 36415; 71010-TC; 80048-TC; 80053-TC; 80061-TC; 80076-TC; 82306; 82962-TC; 83735-TC; 83880; 84100-TC; 84439-TC; 84443-TC; 84484-TC; 85025-TC; 85730-TC; 87081-TC; 94799-TC; 97001-TC; 97116-TC; 97530-TC; A4216; A4606; J1650; J1815; J1940; J1956; J2920; J3475; J7030; J7050; Q0163; Q9967; Z7610

== ENCOUNTER 2018-01-16 13:08 | Emergency (ER) | payer MEDICARE, OTHER ==
[~2018-01-16] VITALS: Ht 165.1 cm; Wt 153.3 kg
[~2018-01-16 13:08] MED LIST changes: +ALBUT2 NEB; +ASPI-1169 PO; -ASPI81TA2 PO; -BENA40TA2 PO; +BENA40TA8 PO; +Blood Sugar Diagnostic IN; +DILT120C87 PO; +FLUT1DIS28 IH; +IPRA0.2S9 NEB; +METF-440 PO; -METF500T4 PO; -MOME13HF2 IH; +PRED10TA PO
--- NOTE | 2018-01-16 13:10 | NUR ---
BIB FROM HOME DT TREMORS-- PATIENT RECEIVED AWAKE AND ALERT, APPEARS IN NO DISTRESS. RESPIRATION EVEN AND UNLABORED. PATIENT ON O3 VIA NC @2LPM,. PATIENT'S VSS. AFEBRILE
--- NOTE | 2018-01-16 13:25 | NUR ---
CALLED DAUGHTER [phone] ABOUT PHONE AND WALKER. SHE IS OUTSIDE
[2018-01-16 13:44] LABS: BASOPHILS # (AUTO) 0.3 /CMM (0.0-0.2); BASOPHILS % (AUTO) 3.7 % (0.0-2.0); EOSINOPHILS % (AUTO) 2.3 % (0.0-6.0); HEMATOCRIT 40 % (33-45); HEMOGLOBIN 12.5 g/dL (11.5-14.8); LYMPHOCYTES # (AUTO) 1.4 /CMM (0.8-4.8); LYMPHOCYTES % (AUTO) 17.9 % (20.0-44.0); MEAN CORPUSCULAR HGB CONC 32 g/dl (31.0-36.0); MEAN CORPUSCULAR VOLUME 92 fL (82-100); MONOCYTES # (AUTO) 0.5 /CMM (0.1-1.30); MONOCYTES % (AUTO) 6.4 % (2.0-12.0); NEUTROPHILS # (AUTO) 5.5 /CMM (1.8-8.9); NEUTROPHILS % (AUTO) 69.7 % (43.0-81.0); PLATELET COUNT (AUTO) 205 /CMM (150-450); RDW COEFFICIENT OF VARIATION 15.6 (11.5-15.0); RED BLOOD CELL COUNT(AUTO) 4.31 MIL/uL (4.0-5.2); WHITE BLOOD COUNT (AUTO) 7.9 K/uL (4.3-11.0)
[2018-01-16 13:56] LABS: CALCIUM, SERUM 9.3 mg/dL (8.5-10.1); CARBON DIOXIDE 45 mmol/L (21-32); CHLORIDE 98 mmol/L (98-107); CREATININE 0.7 mg/dL (0.6-1.3); GLUCOSE 125 mg/dL (74-106); POTASSIUM 3.9 mmol/L (3.5-5.1); SODIUM SERUM 141 mmol/L (136-145); UREA NITROGEN, BLOOD 15 mg/dL (7-18)
[2018-01-16 14:07] LABS: ALANINE AMINOTRANSFERASE 15 U/L (12-78); ALBUMIN 3.2 g/dL (3.4-5.0); ALKALINE PHOSPHATASE 69 U/L (46-116); ASPARTATE AMINOTRANSFERASE 16 U/L (15-37); BILIRUBIN,DIRECT 0.1 mg/dL (0.0-0.2); BILIRUBIN,TOTAL 0.3 mg/dL (0.2-1.0); TOTAL PROTEIN, SERUM 8.1 g/dL (6.4-8.2)
[2018-01-16 14:12] LABS: THYROID STIMULATING HORMONE 4.333 uIU/mL (0.358-3.74)
[2018-01-16 14:22] LABS: INR 0.99 (0.85-1.15)
[2018-01-16 15:10] LABS: ABG BASE EXCESS 8.3 mmol/L; ABG OXYGEN SATURATION 87.1 % (92.0-98.5); ABG PCO2 85.6 mmHg (35.0-45.0); ABG PH 7.269 (7.350-7.450); ABG PO2 53.8 mmHg (75.0-100.0); COHb 0.9 % (0.5-1.5); MetHb 0.7 % (0.0-1.5); O2Hb 85.7 % (94.0-97.0); VENT MODE, BG NASAL CANNULA
--- NOTE | 2018-01-16 15:38 | NUR ---
IV removed. Catheter intact and site benign. Pressure and 4x4 applied to site. No bleeding noted.
--- NOTE | 2018-01-16 15:38 | NUR ---
Patient discharged to home in stable condition. Written and verbal after care instructions given. Patient verbalizes understanding of instruction.
[2018-01-16 15:39] VITALS: BP 139/79
== END 2018-01-16 15:40 | disposition home or self-care (01) ==
LOC: ER 13:09
DX: J44.9 Chronic obstructive pulmonary disease, unspecified (principal); E03.9 Hypothyroidism, unspecified; E11.9 Type 2 diabetes mellitus without complications; I11.0 Hypertensive heart disease with heart failure; I50.9 Heart failure, unspecified; G62.9 Polyneuropathy, unspecified; F17.210 Nicotine dependence, cigarettes, uncomplicated; Z79.4 Long term (current) use of insulin; Z79.82 Long term (current) use of aspirin
CPT/HCPCS: 36415; 36600; 71045-TC; 80048-TC; 80076-TC; 82962-TC; 83880; 84443-TC; 85025-TC; 85730-TC; A4606; Z7610

== ENCOUNTER 2018-05-19 08:47 | Inpatient (IN) | payer MEDICARE, OTHER ==
[~2018-05-19] VITALS: Ht 165.1 cm; Wt 147.4 kg
[~2018-05-19 08:47] MED LIST changes: -METF-440 PO; +METF500T6 PO
--- NOTE | 2018-05-19 08:55 | NUR ---
DR ABAD AT BEDSIDE FOR EVAL.
--- NOTE | 2018-05-19 09:00 | NUR ---
IV LINE STARTED BLOOD DRAWN AND SENT TO LAB.
[2018-05-19 09:09] LABS: BASOPHILS % (AUTO) 0.1 % (0.0-2.0); EOSINOPHILS % (AUTO) 2.2 % (0.0-6.0); HEMATOCRIT 41 % (33-45); HEMOGLOBIN 12.2 g/dL (11.5-14.8); LYMPHOCYTES # (AUTO) 1.2 /CMM (0.8-4.8); LYMPHOCYTES % (AUTO) 17.5 % (20.0-44.0); MEAN CORPUSCULAR HEMOGLOBIN 28 PG (26.0-33.0); MEAN CORPUSCULAR HGB CONC 30 g/dl (31.0-36.0); MEAN CORPUSCULAR VOLUME 94 fL (82-100); MONOCYTES # (AUTO) 0.1 /CMM (0.1-1.30); MONOCYTES % (AUTO) 1.1 % (2.0-12.0); NEUTROPHILS # (AUTO) 5.4 /CMM (1.8-8.9); NEUTROPHILS % (AUTO) 79.1 % (43.0-81.0); PLATELET COUNT (AUTO) 201 /CMM (150-450); RDW COEFFICIENT OF VARIATION 16.9 (11.5-15.0); RED BLOOD CELL COUNT(AUTO) 4.33 MIL/uL (4.0-5.2); WHITE BLOOD COUNT (AUTO) 6.9 K/uL (4.3-11.0)
[2018-05-19 09:21] LABS: CALCIUM, SERUM 9.3 mg/dL (8.5-10.1); CHLORIDE 98 mmol/L (98-107); CREATININE 0.7 mg/dL (0.6-1.3); GLUCOSE 168 mg/dL (74-106); POTASSIUM 4.8 mmol/L (3.5-5.1); SODIUM SERUM 143 mmol/L (136-145); UREA NITROGEN, BLOOD 15 mg/dL (7-18)
[2018-05-19 09:27] LABS: INR 0.96 (0.87-1.13)
[2018-05-19] MEDS ORDERED: FUROSEMIDE 20 MG/2 ML VIAL ONE (09:28)
[2018-05-19 09:29] LABS: TROPONIN I < 0.017 ng/mL (0.00-0.056)
[2018-05-19] MEDS ORDERED: FUROSEMIDE 20 MG/2 ML VIAL IV ONE (09:30)
[2018-05-19 09:34] LABS: CARBON DIOXIDE 46 mmol/L (21-32)
[2018-05-19 09:35] LABS: ALANINE AMINOTRANSFERASE 15 U/L (12-78); ALKALINE PHOSPHATASE 84 U/L (46-116); ASPARTATE AMINOTRANSFERASE 16 U/L (15-37); BILIRUBIN,DIRECT 0.1 mg/dL (0.0-0.2); BILIRUBIN,TOTAL 0.3 mg/dL (0.2-1.0)
--- NOTE | 2018-05-19 09:35 | NUR ---
[employer] FLATBED DRIVER PAGED
[2018-05-19 09:42] LABS: APPEARANCE,URINE Clear (CLEAR); BILIRUBIN,URINE Negative (NEGATIVE); BLOOD, URINE Negative Ery/uL (NEGATIVE); COLOR,URINE Yellow (YELLOW); KETONES,URINE Negative (NEGATIVE); LEUKOCYTE ESTERASE ,URINE Negative (NEGATIVE); NITRITE, URINE Negative (NEGATIVE); PH,URINE 5.5 (5.0-8.0); PROTEIN,URINE Negative (NEGATIVE); UGLUCOSE Negative (NEGATIVE); UROBILINOGEN,URINE 0.2 EU/dL (0.2)
[2018-05-19] MEDS ORDERED: IPRA3AMP23 IH (09:44)
[2018-05-19 09:50] LABS: ABG BASE EXCESS 18.5 mmol/L; ABG OXYGEN SATURATION 95.2 % (92.0-98.5); ABG PCO2 100.3 mmHg (35.0-45.0); ABG PH 7.313 (7.350-7.450); ABG PO2 79.6 mmHg (75.0-100.0); AaDO2 31.2 mmHg; COHb 1.2 % (0.5-1.5); MetHb 0.5 % (0.0-1.5); O2Hb 93.6 % (94.0-97.0); SITE, ABG Right Radial
[2018-05-19] MEDS ORDERED: ALBUTEROL FS 2.5 MG/0.5 ML VIAL.NEB NEB PRN (10:30)
[2018-05-19] MEDS ORDERED: ONDANSETRON HCL/PF 4 MG/2 ML VIAL IVP PRN (10:30)
[2018-05-19] MEDS ORDERED: HYDROCODONE/APAP 5/325MG 1 EACH TABLET PO PRN (10:30)
[2018-05-19] MEDS ORDERED: Z GUARD REMEDY 2 OZ OINT TP PRN (10:30)
[2018-05-19] MEDS ORDERED: DEXTROSE 50%-WATER 50 ML DISP.SYRIN IV PRN (10:30)
[2018-05-19] MEDS ORDERED: MAG HYDROX/AL HYDROX/SIMETH 30 ML UDC PO PRN (10:30)
[2018-05-19] MEDS ORDERED: MAGNESIUM HYDROXIDE 30 ML UDC PO PRN (10:30)
[2018-05-19] MEDS ORDERED: ZOLPIDEM TARTRATE 5 MG TABLET PO PRN (10:30)
[2018-05-19] MEDS ORDERED: IPRATROPIUM NEB FS 0.5 MG/2.5 ML AMPUL.NEB NEB PRN (10:30)
--- NOTE | 2018-05-19 10:45 | NUR ---
GOT BED TELE 309-2 YOVANY IS THE NURSE
--- NOTE | 2018-05-19 11:30 | NUR ---
fe pt. admitted to rm 309-2.a little sob,o2 on immediately.no dvt pumps due to edema feet.hooked up to tele and rhythm sr rate of 98.ramirez cath draining good amt.states no food since cereal last bebe.
[2018-05-19 12:00] VITALS: BP 121/76
[2018-05-19] MEDS: BLOOD SUGAR DIAGNOSTIC 1 EACH STRIP VI SCH ×3 (12:17→21:51)
[2018-05-19] MEDS: GABAPENTIN 300 MG CAPSULE PO SCH ×2 (13:00→17:59)
[2018-05-19] MEDS: methylPREDNISolone SOD SUCC 40 MG/ML VIAL IV SCH ×3 (13:36→23:51)
[2018-05-19] MEDS: INSULIN ASPART/LISPRO 100 UNIT/ML CARTRIDGE SQ SCH ×2 (13:38→18:01)
[2018-05-19] MEDS: ENOXAPARIN SODIUM 40 MG/0.4 ML DISP.SYRIN SQ SCH (13:39)
[2018-05-19 16:00] VITALS: BP 126/75
[2018-05-19] MEDS: INSULIN REGULAR, HUMAN 100 UNIT/ML 3 ML VIAL SQ PRN (18:03)
--- NOTE | 2018-05-19 19:00 | NUR ---
received word from resp. per dr. nogueira to order cpap for pt.order placed.monitoring bgl.
--- NOTE | 2018-05-19 19:20 | NUR ---
TELE/RN NOTES RECEIVED PT. LYING IN BED RESTING. PT. IS EASILY AROUSABLE TO NAME. PT. IS AWAKE, ALERT AND X3. BREATHING EVEN AND UNLABORED ON 3LPM O2 VIA NC. NO SOB, RESPIRATORY DISTRESS OR COMPLAINTS OF PAIN NOTED AT THIS TIME. PT. WITH EXTERNAL INTERACTIVE MEDIA DESIGNER PRESENT AND INTACT. CURRENT RHYTHM = SINUS TACHYCARDIA HR 102. PT. WITH LEFT AC 18 GAUGE IV SALINE LOCK PRESENT, PATENT AND INTACT. PT. WITH SANTIAGO CATHETER PRESENT, PATENT AND INTACT DRAINING CLEAR SOLANGE COLORED URINE. BED LOCKED AND IN LOWEST POSITION, SIDE RAILS UP X3, BED ALARM ON, CALL LIGHT WITHIN REACH, WILL CONTINUE TO MONITOR.
[2018-05-19 20:00] VITALS: BP 120/73
--- NOTE | 2018-05-19 21:15 | NUR ---
TELE/RN NOTES CALLED [facility] DR. FORD TO CLARIFY CPAP/BIPAP ORDER. PER DR. FORD NEW ORDER: BIPAP AT NIGHT WITH SETTINGS 10/5, RT CAN ADJUST NEEDED, AND OK TO TRANSFER PT. TO HIGHER LEVEL OF CARE IF BIPAP NOT ALLOWED ON 3WEST. WILL CARRY OUT ORDER. WILL CONTINUE TO MONITOR.
[2018-05-19] MEDS: FUROSEMIDE 40 MG/4 ML VIAL IV SCH (21:51)
[2018-05-19] MEDS: ATORVASTATIN 10 MG TABLET PO SCH (21:51)
[2018-05-19] MEDS: INSULIN GLARGINE, 100 UNIT/ML CARTRIDGE SQ SCH (21:52)
[2018-05-19] MEDS: *INSULIN REGULAR(HUMULIN R)HUM 100 UNIT/ML VIAL SQ PRN (21:54)
--- NOTE | 2018-05-19 22:28 | NUR ---
RT NOTE LATE ENTRY. @ 2215 PLACED PT ON BIPAP PER MD ORDERS. MEPALEX PLACED. NO RESP DISTRESS OR SOB NOTED. RN KORY PRESENT AT BEDSIDE. BIPAP PLUGGED INTO RED OUTLET. AMBU BAG AT BEDSIDE. ALARMS ARE ON AND AUDIBLE. WILL CONTINUE TO MONITOR.
--- NOTE | 2018-05-19 23:28 | NUR ---
TELE/RN NOTES NOTIFIED [facility] [employer] DR. FORD. PT. IS ON BIPAP ORDERED AND O2 SAT IS RANGING FROM 85-95. PT. IS EASILY AROUSABLE TO NAME. NO SOB OR RESPIRATORY DISTRESS NOTED. PER DR. FORD "ITS OK SHES PROBABLY NOT USED TO THE BIPAP, NO NEW ORDERS". WILL CONTINUE TO MONITOR.
[2018-05-20] VITALS: BP 108/67
--- NOTE | 2018-05-20 03:36 | NUR ---
TOOK PT OFF BIPAP PER PT REQUEST. PLACED PT ON NASAL CANNULA. NO RESP DISTRESS OR SOB NOTED. ELIN BOONE.
[2018-05-20 04:00] VITALS: BP 124/72
[2018-05-20] MEDS: methylPREDNISolone SOD SUCC 40 MG/ML VIAL IV SCH ×3 (06:07→18:20)
[2018-05-20 06:43] LABS: TROPONIN I < 0.017 ng/mL (0.00-0.056)
[2018-05-20 06:46] LABS: BASOPHILS % (AUTO) 0.4 % (0.0-2.0); EOSINOPHILS % (AUTO) 0.1 % (0.0-6.0); HEMATOCRIT 42 % (33-45); LYMPHOCYTES # (AUTO) 0.8 /CMM (0.8-4.8); LYMPHOCYTES % (AUTO) 10.1 % (20.0-44.0); MEAN CORPUSCULAR HEMOGLOBIN 29 PG (26.0-33.0); MEAN CORPUSCULAR HGB CONC 31 g/dl (31.0-36.0); MEAN CORPUSCULAR VOLUME 94 fL (82-100); MONOCYTES # (AUTO) 0.1 /CMM (0.1-1.30); MONOCYTES % (AUTO) 0.7 % (2.0-12.0); NEUTROPHILS # (AUTO) 7.4 /CMM (1.8-8.9); NEUTROPHILS % (AUTO) 88.7 % (43.0-81.0); PLATELET COUNT (AUTO) 156 /CMM (150-450); RDW COEFFICIENT OF VARIATION 16.6 (11.5-15.0); RED BLOOD CELL COUNT(AUTO) 4.46 MIL/uL (4.0-5.2); WHITE BLOOD COUNT (AUTO) 8.4 K/uL (4.3-11.0)
--- NOTE | 2018-05-20 06:50 | NUR ---
TELE/RN NOTES PT. IS LYING IN BED AWAKE, ALERT AND ORIENTED X3. BREATHING EVEN AND UNLABORED ON 3LPM O2 VIA NC. NO SOB, RESPIRATORY DISTRESS OR COMPLAINTS OF PAIN NOTED AT THIS TIME. PT. WITH EXTERNAL EPIC BEACON ANALYST PRESENT AND INTACT. CURRENT RHYTHM = SINUS RHYTHM HR 89. PT. WITH LEFT AC 18 GAUGE IV SALINE LOCK PRESENT, PATENT AND INTACT. PT. WITH SANTIAGO CATHETER PRESENT, PATENT AND INTACT. BED LOCKED AND IN LOWEST POSITION, SIDE RAILS UP X3, BED ALARM ON, CALL LIGHT WITHIN REACH, WILL ENDORSE TO DAYSHIFT NURSE FOR CONTINUITY OF CARE.
[2018-05-20 06:55] LABS: ALANINE AMINOTRANSFERASE 14 U/L (12-78); ALBUMIN 2.9 g/dL (3.4-5.0); ALKALINE PHOSPHATASE 81 U/L (46-116); ASPARTATE AMINOTRANSFERASE 14 U/L (15-37); B-TYPE NATRIURETIC PEPTIDE 19 PG/ML (0-125); BILIRUBIN,TOTAL 0.2 mg/dL (0.2-1.0); CHLORIDE 96 mmol/L (98-107); CREATININE 0.7 mg/dL (0.6-1.3); GLUCOSE 227 mg/dL (74-106); PHOSPHORUS 4.4 mg/dL (2.5-4.9); POTASSIUM 4.8 mmol/L (3.5-5.1); SODIUM SERUM 140 mmol/L (136-145); TOTAL PROTEIN, SERUM 7.9 g/dL (6.4-8.2); UREA NITROGEN, BLOOD 20 mg/dL (7-18)
[2018-05-20 06:56] LABS: CHOLESTEROL 131 mg/dL (<200); TRIGLYCERIDES 61 mg/dL (30-150)
[2018-05-20 06:57] LABS: HDL CHOLESTEROL 53 mg/dL (40-60); LDL 66 mg/dL (0-99)
[2018-05-20 06:58] LABS: CARBON DIOXIDE 46 mmol/L (21-32)
[2018-05-20] MEDS: BLOOD SUGAR DIAGNOSTIC 1 EACH STRIP VI SCH ×4 (06:59→21:16)
[2018-05-20] MEDS: INSULIN REGULAR, HUMAN 100 UNIT/ML 3 ML VIAL SQ PRN ×2 (07:00→12:42)
--- NOTE | 2018-05-20 07:30 | NUR ---
RN OPENING/TELE NOTES RECEIVED PT. IN BED AWAKE, A&OX4. BREATHING ON OXYGEN AT 3L/MIN VIA NASAL CANNULA. NO S/S OF ACUTE DISTRESS. PT. DENIES PAIN. IV ACCESS IS INTACT ON LEFT ANTECUBITAL SITE. BIPAP MACHINE AT BEDSIDE. SANTIAGO CATHETER IS DRAINING CLEAR, AND YELLOW URINE. BED IS IN LOWEST, AND LOCKED POSITION. 2 SIDE RAILS UP, AND INSTRUCTED PT. TO USE CALL LIGHT FOR ASSISTANCE. ALL NEEDS MET.
[2018-05-20 08:00] VITALS: BP 127/85
[2018-05-20] MEDS: ASPIRIN 81 MG TAB.CHEW PO SCH (09:26)
[2018-05-20] MEDS: ENOXAPARIN SODIUM 40 MG/0.4 ML DISP.SYRIN SQ SCH (09:29)
[2018-05-20] MEDS: FUROSEMIDE 40 MG/4 ML VIAL IV SCH ×2 (09:40→21:07)
[2018-05-20] MEDS: GABAPENTIN 300 MG CAPSULE PO SCH ×4 (09:51→17:10)
[2018-05-20] MEDS: INSULIN GLARGINE, 100 UNIT/ML CARTRIDGE SQ SCH ×2 (10:10→21:22)
[2018-05-20] MEDS: INSULIN ASPART/LISPRO 100 UNIT/ML CARTRIDGE SQ SCH ×3 (10:11→17:00)
[2018-05-20 10:29] LABS: ABG BASE EXCESS 21.5 mmol/L; ABG OXYGEN SATURATION 92.7 % (92.0-98.5); ABG PCO2 85.6 mmHg (35.0-45.0); ABG PH 7.396 (7.350-7.450); ABG PO2 66.2 mmHg (75.0-100.0); AaDO2 61.8 mmHg; COHb 1.4 % (0.5-1.5); MetHb 0.4 % (0.0-1.5); SITE, ABG Right Radial; VENT MODE, BG Nasal Cannula
[2018-05-20] MEDS: BENAZEPRIL HCL 10 MG TABLET PO SCH (10:29)
[2018-05-20] MEDS: IPRATROPIUM NEB FS 0.5 MG/2.5 ML AMPUL.NEB NEB SCH ×2 (14:39→19:35)
[2018-05-20] MEDS: ALBUTEROL FS 2.5 MG/0.5 ML VIAL.NEB NEB SCH ×2 (14:39→19:35)
[2018-05-20 16:00] VITALS: BP 134/69
[2018-05-20] MEDS: ACETAMINOPHEN 325 MG TABLET PO PRN (16:32)
--- NOTE | 2018-05-20 19:00 | NUR ---
MS RN OPENING NOTE Patient was seen sitting up in bed AAOx4, breathing on 3L O2 NC with no SOB, and no signs of acute distress. SL 18g IV in the left AC is intact and patent. Barone is draining clear yellow urine. RT is at the bedside to give breathing treatment and will return later tonight to set up Bipap machine. Bed is in the low/locked position, two side rails up, and call garvin within reach. Patient has no immediate needs at this time. Will continue to monitor.
--- NOTE | 2018-05-20 19:15 | NUR ---
MS RN OPENING NOTE Patient was seen lying in bed AAOx4, breathing on 2L of O2 NC with no SOB, and no signs of acute distress. Heparin drip is infusing through the right upper arm PICC line at 1150 units/hr with no signs of leaking, infiltration, redness, or swelling. Patient shows no signs or sx of bleeding. Left upper arm AV shunt is noted; clean, dry, and open to air; positive bruit. Dressings on bilateral lower extremities are clean, dry, and intact and per shift report/physician notes dressing is only to be changed by MD until further notice. Bed is in the low/locked position, two side rails up, and call garvin within reach. Patient has no immediate needs at this time. Will continue to monitor. Addendum: 05/21/18 at 0112 by MISA MARTÍNEZ RN Documented on wrong patient. Opening Note intended for patient Biju Dominguez, NOT for Sybil Campos.
--- NOTE | 2018-05-20 19:30 | NUR ---
MS WORTHINGTON OPENING NOTE Patient was admitted to the unit from the ED several minutes before shift change. Vital signs are stable. BP is slightly elevated, but patient is scheduled to receive metoprolol, which will be administered as ordered. Patient is AAOx4, breathing on RA with no SOB, and currently no signs of acute distress. SL 20g IV in the right wrist is intact and patent. Left lower leg is red and edematous (admitted for cellulitis); pictures have been taken per unit policy. Initial physical assessment has been completed and is unremarkable; past medical history has been obtained. The patient has been oriented to his room and educated on the use of his call garvin. All new orders have been acknowledged. Bed is in the low/locked position, two side rails up, and call garvin within reach. Patient has no immediate needs or concerns at this time. Will continue to monitor. Addendum: 05/21/18 at 0105 by MISA MARTÍNEZ RN This documentation was entered under the wrong patient. Opening Note was intended for Alberto Portillo, NOT intended for Sybil Campos.
--- NOTE | 2018-05-20 19:45 | NUR ---
RN CLOSING NOTES PT. IN BED SLEEPING EASY TO AWAKE, A&OX4. HED OF BED UP AT 45 DEGREES. BREATHING ON OXYGEN UNLABORED AT 3L/MIN VIA NASAL CANNULA. NO S/S OF ACUTE DISTRESS. IV ACCESS IS INTACT ON LEFT ANTECUBITAL SITE. BIPAP MACHINE AT BEDSIDE. SANTIAGO CATHETER IS DRAINED 825 CC OF CLEAR, AND YELLOW URINE. BED IS IN LOWEST, AND LOCKED POSITION. 2 SIDE RAILS UP, AND INSTRUCTED PT. TO USE CALL LIGHT FOR ASSISTANCE. ALL NEEDS MET.
[2018-05-20 20:00] VITALS: BP 115/74
[2018-05-20] MEDS: ATORVASTATIN 10 MG TABLET PO SCH (21:07)
[2018-05-20] MEDS: *INSULIN REGULAR(HUMULIN R)HUM 100 UNIT/ML VIAL SQ PRN (21:24)
--- NOTE | 2018-05-20 22:15 | NUR ---
PT PLACED ON BIPAP AT THIS TIME. NEW BIPAP SETTING OF 18/. PT RATE SET AT 12 ON 35%. NO RESP DISTRESS NOTED. WILL CONT TO MONITOR PATIENT.
[2018-05-21] MEDS: methylPREDNISolone SOD SUCC 40 MG/ML VIAL IV SCH ×3 (00:11→12:17)
[2018-05-21] MEDS: ALBUTEROL FS 2.5 MG/0.5 ML VIAL.NEB NEB SCH ×3 (01:30→12:49)
[2018-05-21] MEDS: IPRATROPIUM NEB FS 0.5 MG/2.5 ML AMPUL.NEB NEB SCH ×3 (01:30→12:49)
[2018-05-21] MEDS: BLOOD SUGAR DIAGNOSTIC 1 EACH STRIP VI SCH ×2 (06:35→12:17)
[2018-05-21 06:37] LABS: EOSINOPHILS % (AUTO) 0.1 % (0.0-6.0); HEMATOCRIT 41 % (33-45); HEMOGLOBIN 12.8 g/dL (11.5-14.8); LYMPHOCYTES % (AUTO) 11.2 % (20.0-44.0); MEAN CORPUSCULAR HEMOGLOBIN 29 PG (26.0-33.0); MEAN CORPUSCULAR HGB CONC 31 g/dl (31.0-36.0); MEAN CORPUSCULAR VOLUME 93 fL (82-100); MONOCYTES # (AUTO) 0.2 /CMM (0.1-1.30); MONOCYTES % (AUTO) 2.2 % (2.0-12.0); NEUTROPHILS # (AUTO) 7.7 /CMM (1.8-8.9); NEUTROPHILS % (AUTO) 86.5 % (43.0-81.0); PLATELET COUNT (AUTO) 201 /CMM (150-450); RDW COEFFICIENT OF VARIATION 17.1 (11.5-15.0); RED BLOOD CELL COUNT(AUTO) 4.41 MIL/uL (4.0-5.2); WHITE BLOOD COUNT (AUTO) 8.9 K/uL (4.3-11.0)
[2018-05-21] MEDS: INSULIN REGULAR, HUMAN 100 UNIT/ML 3 ML VIAL SQ PRN ×2 (06:38→12:28)
[2018-05-21 07:01] LABS: ALBUMIN 2.9 g/dL (3.4-5.0); BILIRUBIN,TOTAL 0.2 mg/dL (0.2-1.0); CALCIUM, SERUM 8.9 mg/dL (8.5-10.1); CREATININE 0.8 mg/dL (0.6-1.3); MAGNESIUM 2.3 mg/dL (1.8-2.4); PHOSPHORUS 3.6 mg/dL (2.5-4.9); POTASSIUM 4.4 mmol/L (3.5-5.1); TOTAL PROTEIN, SERUM 7.7 g/dL (6.4-8.2)
--- NOTE | 2018-05-21 07:41 | NUR ---
MS RN CLOSING NOTE Patient is AAOx4, breathing on 3L O2 NC with no SOB, and currently no signs of acute distress. Patient slept intermittently overnight but had no complaints and no complications. IV in the left AC is intact and patent. Barone catheter is draining clear yellow urine. Bed is in the low/locked position, two side rails up, and call garvin within reach. Patient remains in stable condition. Patient care endorsed to day shift nurse.
--- NOTE | 2018-05-21 07:54 | NUR ---
MS RN OPENING NOTES RECEIVED PT FROM NIGHTSHIFT NURSE IN STABLE CONDITION. PT IS A/O X3. NO SOB OR ACUTE SIGNS OF DISTRESS NOTED. BREATHING IS EVEN AND UNLABORED. PT ON 3L VIA NC AND SATING AT 95%. IV TO LEFT AC NOTED TO BE PATENT AND INTACT. NO REDNESS OR SIGNS OF INFILTRATION NOTED. SANTIAGO CATHETER NOTED TO BE DRAINING CLEAR, YELLOW URINE. CATHETER PLACED FOR CLOSE I & O MONITORING. BED IN LOW LOCKED POSITION, SIDE RAILS UP X2, CALL LIGHT WITHIN REACH. WILL CONTINUE TO MONITOR
[2018-05-21 08:00] VITALS: BP 118/60
[2018-05-21] MEDS: FUROSEMIDE 40 MG/4 ML VIAL IV SCH (08:45)
[2018-05-21] MEDS: GABAPENTIN 300 MG CAPSULE PO SCH ×2 (08:45→12:16)
[2018-05-21] MEDS: ASPIRIN 81 MG TAB.CHEW PO SCH (08:46)
[2018-05-21] MEDS: ENOXAPARIN SODIUM 40 MG/0.4 ML DISP.SYRIN SQ SCH (08:48)
[2018-05-21] MEDS: INSULIN ASPART/LISPRO 100 UNIT/ML CARTRIDGE SQ SCH ×2 (08:49→12:29)
[2018-05-21] MEDS: INSULIN GLARGINE, 100 UNIT/ML CARTRIDGE SQ SCH (08:50)
[2018-05-21 09:00] VITALS: BP 112/59
[2018-05-21] MEDS: BENAZEPRIL HCL 10 MG TABLET PO SCH (09:00)
[2018-05-21] MEDS ORDERED: FUROSEMIDE 80 MG TABLET PO SCH (10:00)
[2018-05-21] MEDS: ACETAMINOPHEN 325 MG TABLET PO PRN (13:14)
[2018-05-21] MEDS ORDERED: FURO80TA3 PO (14:28)
--- NOTE | 2018-05-21 16:00 | NUR ---
MS CLINICAL PROGRAMMER NOTES PT WAS DISCHARGED FROM THE UNIT IN STABLE CONDITION. ALL NEEDS WERE MET DURING SHIFT AND ORDERS CARRIED OUT ACCORDINGLY. ALL DUE MEDS GIVEN. O2 SATURATION @ 95% PRIOR TO D/C. PT DENIED AND SOB PRIOR TO D/C. SANTIAGO CATHETER SUCCESSFULLY REMOVED WITH CATHETER TIP INTACT. PT VOIDED 200CC AFTER CATHETER REMOVAL. IV WAS SUCCESSFULLY REMOVED WITH NO COMPLICATIONS. DISCHARGE INSTRUCTIONS REVIEWED WITH PT AND FAMILY. PRESCRIPTION GIVEN TO PT WELL. PT SIGNED ALL DISCHARGE INSTRUCTIONS. BELONGINGS VERIFIED PRIOR TO D/C PT LEFT WITH ALL BELONGINGS. COPIES OF D/C PAPERWORK MADE AND PLACED IN PT'S CHART. SHE WAS SAFLEY ESCORTED TO THE MAIN LOBBY AND LEFT VIA PRIVATE VEHICLE
== END 2018-05-21 15:30 | disposition home or self-care (01) | DRG 291 ==
LOC: ER 08:49 → TELE 10:51 → MED 05-20 08:50
DX: I11.0 Hypertensive heart disease with heart failure (principal); J96.21 Acute and chronic respiratory failure with hypoxia; J96.22 Acute and chronic respiratory failure with hypercapnia; E66.2 Morbid (severe) obesity with alveolar hypoventilation; Z68.43 Body mass index [BMI] 50.0-59.9, adult; I50.33 Acute on chronic diastolic (congestive) heart failure; E11.40 Type 2 diabetes mellitus with diabetic neuropathy, unspecified; J44.9 Chronic obstructive pulmonary disease, unspecified; Z79.899 Other long term (current) drug therapy; Z79.82 Long term (current) use of aspirin; Z79.4 Long term (current) use of insulin; Z99.81 Dependence on supplemental oxygen; Z79.84 Long term (current) use of oral hypoglycemic drugs; Z87.891 Personal history of nicotine dependence
CPT/HCPCS: 36415; 36600; 71045-TC; 80048-TC; 80053-TC; 80061-TC; 80076-TC; 81000-TC; 82803-TC; 82962-TC; 83605-TC; 83735-TC; 83880; 84100-TC; 84443-TC; 84484-TC; 85025-TC; 85730-TC; 86850-TC; 87040-TC; 87081-TC; 87086-TC; 93307-TC; 97110-TC; 97530-TC; A4606; J1650; J1815; J1940; J2920; Z7610

== ENCOUNTER 2019-10-04 10:40 | Inpatient (IN) | payer MEDICARE, OTHER ==
[2019-10-04] VITALS (21 sets, daily range): BP systolic 112–162; BP diastolic 52–96
[~2019-10-04] VITALS: Ht 165.1 cm; Wt 145.1 kg
[~2019-10-04 10:40] MED LIST changes: -ALBUT2 NEB; -Blood Sugar Diagnostic IN; -DILT120C87 PO; +DIPH25CA51 PO; -DIPH25CA6 PO; +ETOMIDATE 2 MG/ML VIAL ONE; -FAMO20TA8 PO; -FLUT1DIS28 IH; +FURO80TA3 PO; -IPRA0.2S9 NEB; +IPRA3AMP23 IH; -METF500T6 PO; -PRED10TA PO; +ROCURONIUM BROMIDE 50 MG/5 ML ONE; +SUCCINYLCHOLINE CHLORIDE 20 MG/ML VIAL ONE
--- NOTE | 2019-10-04 10:50 | NUR ---
LETI FROM HOME C/O FLU LIKE SYMPTOMS STARTED 2 DAYS AGO. CONSTIPATED FOR 2 DAYS PER PT. PATIENT A/OX4, SHORT OF BREATH, PLACED ON 2LPM VIA NC WITH SPO2 OF 86%. PATIENT KEPT COMFORTABLE IN BED, HOB ELEVATED. ATTACHED TO THE PEDIATRIC NEPHROLOGIST.
--- NOTE | 2019-10-04 10:55 | NUR ---
patient given a urine cup for a sample, was unable to give urine, will try again later.
[2019-10-04] MEDS ORDERED: IPRATROPIUM NEB FS 0.5 MG/2.5 ML AMPUL.NEB NEB ONE (11:00)
[2019-10-04] MEDS ORDERED: ALBUTEROL FS 2.5 MG/3 ML VIAL.NEB NEB ONE (11:00)
[2019-10-04] MEDS ORDERED: methylPREDNISolone SOD SUCC 125 MG/2ML VIAL IV ONE (11:00)
[2019-10-04 11:06] LABS: BASOPHILS % (AUTO) 0.4 % (0.0-2.0); EOSINOPHILS % (AUTO) 0.3 % (0.0-6.0); HEMATOCRIT 39 % (33-45); HEMOGLOBIN 11.8 g/dL (11.5-14.8); LYMPHOCYTES # (AUTO) 1.1 /CMM (0.8-4.8); LYMPHOCYTES % (AUTO) 8.7 % (20.0-44.0); MEAN CORPUSCULAR HGB CONC 31 g/dl (31.0-36.0); MEAN CORPUSCULAR VOLUME 94 fL (82-100); MONOCYTES # (AUTO) 0.5 /CMM (0.1-1.30); MONOCYTES % (AUTO) 4.2 % (2.0-12.0); NEUTROPHILS # (AUTO) 10.7 /CMM (1.8-8.9); NEUTROPHILS % (AUTO) 86.4 % (43.0-81.0); PLATELET COUNT (AUTO) 201 /CMM (150-450); RED BLOOD CELL COUNT(AUTO) 4.13 MIL/uL (4.0-5.2); WHITE BLOOD COUNT (AUTO) 12.4 K/uL (4.3-11.0)
[2019-10-04] MEDS ORDERED: methylPREDNISolone SOD SUCC 125 MG/2ML VIAL ONE (11:07)
[2019-10-04] MEDS ORDERED: IPRATROPIUM NEB FS 0.5 MG/2.5 ML AMPUL.NEB ONE (11:21)
[2019-10-04] MEDS ORDERED: ALBUTEROL FS 2.5 MG/3 ML VIAL.NEB ONE (11:21)
[2019-10-04 11:32] LABS: ALANINE AMINOTRANSFERASE 13 U/L (12-78); ALKALINE PHOSPHATASE 93 U/L (46-116); ASPARTATE AMINOTRANSFERASE 15 U/L (15-37); B-TYPE NATRIURETIC PEPTIDE 98 PG/ML (0-125); BILIRUBIN,DIRECT 0.1 mg/dL (0.0-0.2); BILIRUBIN,TOTAL 0.2 mg/dL (0.2-1.0); CALCIUM, SERUM 9.4 mg/dL (8.5-10.1); CARBON DIOXIDE 43 mmol/L (21-32); CHLORIDE 97 mmol/L (98-107); CREATININE 0.8 mg/dL (0.6-1.3); GLUCOSE 122 mg/dL (74-106); POTASSIUM 3.8 mmol/L (3.5-5.1); SODIUM SERUM 141 mmol/L (136-145); TOTAL PROTEIN, SERUM 8.7 g/dL (6.4-8.2); UREA NITROGEN, BLOOD 16 mg/dL (7-18)
--- NOTE | 2019-10-04 12:08 | NUR ---
CALLED THE [facility] PAGED.
[2019-10-04] MEDS ORDERED: FUROSEMIDE 40 MG/4 ML VIAL ONE (12:16)
[2019-10-04] MEDS ORDERED: ASPIRIN 325 MG TABLET ONE (12:17)
[2019-10-04] MEDS ORDERED: NITROGLYCERIN PACKET 1 GM PACKET ONE (12:17)
[2019-10-04] MEDS ORDERED: ASPIRIN 81 MG TAB.CHEW ONE (12:25)
[2019-10-04] MEDS ORDERED: ASPIRIN 325 MG TABLET PO ONE (12:30)
[2019-10-04] MEDS ORDERED: NITROGLYCERIN PACKET 1 GM PACKET TD ONE (12:30)
[2019-10-04] MEDS ORDERED: FUROSEMIDE 40 MG/4 ML VIAL IV ONE (12:30)
--- NOTE | 2019-10-04 12:32 | NUR ---
ASPIRIN 325MG NOT GIVEN, PER PATIENT SHE TOOK ASA 81MG THIS AM. DR. MEDINA MADE AWARE. RECEIVED VERBAL ORDER FOR ASPIRIN 162MG.
--- NOTE | 2019-10-04 12:48 | NUR ---
REPORT GIVEN TO YULI WORTHINGTON
[2019-10-04] MEDS ORDERED: DEXTROSE 50%-WATER 50 ML DISP.SYRIN IV PRN (13:00)
[2019-10-04] MEDS ORDERED: INSULIN REGULAR, HUMAN 100 UNIT/ML 3 ML VIAL SQ PRN (13:00)
[2019-10-04] MEDS ORDERED: NITROGLYCERIN 0.4 MG/TAB BOTTLE SL PRN (13:00)
[2019-10-04] MEDS ORDERED: *INSULIN REGULAR(HUMULIN R)HUM 100 UNIT/ML VIAL SQ PRN (13:00)
--- NOTE | 2019-10-04 13:14 | NUR ---
patient transferred to room 313-1 via acls protocol. No distress noted. Patient a/ox3, on o2 at 2lpom via nc. Endorsed to Darius WORTHINGTON.
--- NOTE | 2019-10-04 13:15 | NUR ---
MS LIVE AMMUNITION INSPECTOR NOTE PATIENT ARRIVED BY DANICA. TRANSFERRED TO BED. PATIENT IN NO ACUTE DISTRESS. NO SOB NOTED. PATIENT BREATHING IS EVEN AND UNLABORED. PATIENT ON CARDIAC MONITORING READING SINUS TACHYCARDIA HR 104. PATIENT BREATHING ON O2 2L NC SATURATING AT 92%. FAMILY AT THE BEDSIDE. PATIENT SAFETY PRECAUTIONS IN PLACE. HOB IS ELEVATED. BED ALARM IS ON. PATIENT BED IS LOCKED AND IN LOWEST POSITION. CALL LIGHT WITHIN REACH. WILL CONTINUE TO MONITOR. MD MADE AWARE OF PATIENT ARRIVAL, WILL FOLLOW UP ORDERS.
[2019-10-04] MEDS ORDERED: diphenhydrAMINE HCL 25 MG CAPSULE PO PRN (13:30)
[2019-10-04] MEDS: ENOXAPARIN SODIUM 40 MG/0.4 ML DISP.SYRIN SQ SCH (14:55)
[2019-10-04] MEDS: BENAZEPRIL HCL 20 MG TABLET PO SCH (14:56)
[2019-10-04] MEDS: AZITHROMYCIN 250 MG TABLET PO SCH (14:56)
[2019-10-04] MEDS: IPRATROPIUM NEB FS 0.5 MG/2.5 ML AMPUL.NEB NEB SCH ×2 (16:07→19:24)
[2019-10-04] MEDS: ALBUTEROL FS 2.5 MG/0.5 ML VIAL.NEB NEB SCH ×2 (16:07→19:24)
[2019-10-04] MEDS: FUROSEMIDE 40 MG/4 ML VIAL IV SCH (16:27)
[2019-10-04] MEDS: methylPREDNISolone SOD SUCC 40 MG/ML VIAL IV SCH (16:27)
[2019-10-04] MEDS: GABAPENTIN 300 MG CAPSULE PO SCH (16:27)
[2019-10-04 16:38] LABS: ABG OXYGEN SATURATION 87.6 % (92.0-98.5); ABG PCO2 131.5 mmHg (35.0-45.0); ABG PH 7.184 (7.350-7.450); ABG PO2 60.3 mmHg (75.0-100.0); COHb 0.8 % (0.5-1.5); MetHb 0.3 % (0.0-1.5); O2Hb 86.6 % (94.0-97.0); SITE, ABG Left Radial; VENT MODE, BG 2LPM NC
[2019-10-04] MEDS: BLOOD SUGAR DIAGNOSTIC 1 EACH STRIP VI SCH ×2 (16:44→22:21)
--- NOTE | 2019-10-04 16:45 | NUR ---
MS RN NOTE PATIENT BLOOD SUGAR 130. NO INSULIN COVERAGE NEEDED PER PROTOCOL
[2019-10-04] MEDS ORDERED: FUROSEMIDE 40 MG/4 ML VIAL IV SCH (17:00)
[2019-10-04] MEDS ORDERED: INSULIN ASPART/LISPRO 100 UNIT/ML CARTRIDGE SQ SCH (17:00)
--- NOTE | 2019-10-04 18:15 | NUR ---
FUR FINISHER SEAMSTRESSSET ILLUSTRATOR NOTE REPORT GIVEN TO JEWEL WORTHINGTON IN ICU. PATIENT IN NO ACUTE DISTRESS. PATIENT ALERT AND ORIENTED X3. PATIENT BED IS LOCKED AND IN LOWEST POSITION. PATIENT ON TELE MONITORING SINUS TACHYCARDIA HR 105. ORDER TO TRANSFER TO ICU BY DR. VELAZQUEZ. DR. VELAZQUEZ INFORMED OF ABG RESULTS AND PCO2 OF 131.5. ORDERS ENDORSED TO JEWEL WORTHINGTON FOR BRYAN.
--- NOTE | 2019-10-04 18:33 | NUR ---
received pt from Tele, COPD exacerbation, drowsy, a/o x4, SR, on bipap at 50% fio2, sat well, BL leg edema, lungs diminished, tolerates diet, v/s stable, no pain.
--- NOTE | 2019-10-04 18:33 | NUR ---
RT NOTE PT PLACED ON BIPAP PER MD VELAZQUEZ ORDER. SETTINGS PRESCRIBED 20/5 40% BUR 16. ALARMS SET PER PROTOCOL AND AUDIBLE. BIPAP PLUGGED IN TO RED OUTLET. AMBU BAG AT BED SIDE. NO DISTRESS NOTED. Addendum: 10/04/19 at 1834 by KELLI MEDINA RT Amended: Links added.
--- NOTE | 2019-10-04 19:45 | NUR ---
ICU/STAFFING COORDINATOR RECEIVED REPORT FROM DAY NURSE. SEE NURSING FLOWSHEET FOR ASSESSMENT. PT HAS A FEW SKIN ISSUES WHICH ARE ADDRESSED ALONG WITH THE INTERVENTIONS TO EACH OF THIS. PT IS ALERT WITH LOTS OF STIMULI. PT IS ON BIPAP WITH SATURATION AT 100%. PT WAS TURNED AND REPOSITIONED FOR COMFORT AND CARE. WILL CONTINUE TO MONITOR THIS PT. NO ACUTE DISTRESS SEEN AT THIS TIME.
[2019-10-04] MEDS ORDERED: INSULIN GLARGINE, 100 UNIT/ML CARTRIDGE SQ SCH (21:00)
[2019-10-04 21:06] LABS: ABG BASE EXCESS 17.4 mmol/L; ABG PCO2 142.2 mmHg (35.0-45.0); ABG PH 7.178 (7.350-7.450); ABG PO2 64.7 mmHg (75.0-100.0); COHb 1.3 % (0.5-1.5); MetHb 0.5 % (0.0-1.5); O2Hb 88.4 % (94.0-97.0); SITE, ABG Right Radial
--- NOTE | 2019-10-04 21:07 | NUR ---
ABG DONE. NOTIFIED RN WITH THE RESULT.
[2019-10-04] MEDS: PROPOFOL 100 ML IV PRN ×2 (22:00→22:58)
--- NOTE | 2019-10-04 22:00 | NUR ---
ICU/CONSUMER AFFAIRS SPECIALIST PT IS CURRENTLY INTUBATED AT 2145, UNABLE TO ASSESS THE CSSRS ON THIS PT.
--- NOTE | 2019-10-04 22:00 | NUR ---
ICU/WATCH ENGINE OPERATOR 2099-ABG RESULTED WHICH WAS WORSE THAN THE EARLIER ABG. RN MILITARY PULMONOLOGY QARNI CALLED. 2114-RN MILITARY PULM. CALLED BACK QARNI, NOTIFIED ABOUT THE ABG RESULTS. SAID TO INTUBATED & CALL ER . 2119- CALLED DAUGHTER [phone] WHO IS EMERGENCY CONTACT & SPOKE TO SON WELL. THEY BOTH SPOKE TO MOTHER BEFORE THE INTUBATION. 2140-ER INTUBATED THE PT WITH 30 ETOMIDATE AND 100 ROCURONIUM, 7.5 & 23 AT THE LIP LINE
--- NOTE | 2019-10-04 22:09 | NUR ---
@[address] HILL. 7.5 ETT SECURED AT 24 CM AT THE LIP. COLOR CHANGE IN CO2 DETECTOR. EQUAL CHEST RISE, BILAT BREATH SOUNDS. SX'D AND LAVAGE FOR LARGE AMT OF THICK/FROTHY PINK, YELLOW SECRETIONS. VENT ALARMS SET AND AUDIBLE. AMBU BAG AT BEDSIDE. VENT PLUGGED INTO RED OUTLET. ABG IN 1HR. CONTINUE MECH VENT. SUPPORT
[2019-10-04] MEDS: INSULIN GLARGINE, 100 UNIT/ML CARTRIDGE SQ SCH (22:22)
--- NOTE | 2019-10-04 22:30 | NUR ---
ICU/ELECTRIC DISTRIBUTION CHECKER 2200- STAT CHEST XRAY FOR ET TUBE PLACEMENT AND O/G TUBE PLACEMENT WELL 0-PRIMARY HUMAN RESOURCE INTERNSHIP MD CALLED TO GET ORDER FOR SEDATION OF PROPOFOL TO TITRATE. 2220- ABG ORDERS FOR 1 HR POST INTUBATION
--- NOTE | 2019-10-04 22:50 | NUR ---
ICU/ASSOCIATE DESIGNER BLOOD SUGAR CHECK WAS DONE WHICH WAS 187, THIS WAS COVERED WITH 40 UNITES LANTUS. SINCE PT IS NOW ORALLY INTUBATED BLOOD SUGAR CHECKS WERE CHANGED TO MIDNIGHT AND 0600. WILL CONTINUE TO MONITOR THIS PER MD'S ORDERS.
--- NOTE | 2019-10-04 23:12 | NUR ---
Notified Dr. Sami Carbajal that patient is on Diprivan at 50mcg currently and still trying to reach for et tube. Received orders to titrate up to 100. Read back orders performed and carried out. Will continue to monitor patient.
[2019-10-04 23:39] LABS: ABG BASE EXCESS 12.4 mmol/L; ABG OXYGEN SATURATION 97.8 % (92.0-98.5); ABG PCO2 42.9 mmHg (35.0-45.0); ABG PH 7.544 (7.350-7.450); ABG PO2 91.5 mmHg (75.0-100.0); AaDO2 144.4 mmHg; COHb 0.9 % (0.5-1.5); MetHb 0.4 % (0.0-1.5); O2Hb 96.5 % (94.0-97.0); PEEP,BG 5 cm H2O
--- NOTE | 2019-10-04 23:40 | NUR ---
ABG DONE POST INTUBATION. NOTIFIED RN WITH THE RESULT.
--- NOTE | 2019-10-04 23:50 | NUR ---
ICU/QUILL LAYER 2345-ON PULM. NICHELLE CALLED ABOUT THE 1 HOUR POST INTUBATION ABG RESULTS, HE SAID NO CHANGE AND NO NEW ORDERS. 2350- NEW IV PLACED TO LEFT HAND 20 G. HEPLOCK. 2355-ORDER PLACED TO HAVE ETT TUBE PULLED BACK DUE TO THE XRAY THAT SHOWS THAT ETT TUBE IS 1CM ABOVE WHERE IT'S NORMALLY TO BE .
--- NOTE | 2019-10-04 23:56 | NUR ---
ETT RETRACTED 1CM. ETT IS NOW AT 23CM AT THE LIP. RN NOTIFIED.
[2019-10-05] VITALS (46 sets, daily range): BP systolic 97–144; BP diastolic 53–93
--- NOTE | 2019-10-05 00:05 | NUR ---
ICU/COMMISSIONED SECURITY OFFICER FAMILY AT BEDSIDE, GAVE UPDATE ON PT'S CONDITION. ASK PT'S SON ANAYELI IF IT WOULD BE POSSIBLE TO OBTAIN CONSENT FOR A PICC LINE DUE TO PT'S CONDITION AND PT IS ALSO A DIFFICULT STICK. SON ANAYELI SIGNED CONSENT THEN PLACED IN CHART, NOTIFIED PASTE MIXING SUPERVISOR ABOUT THE NEED TO GET PICC LINE PLACED.
[2019-10-05] MEDS: PROPOFOL 100 ML IV PRN ×12 (00:11→21:30)
--- NOTE | 2019-10-05 00:30 | NUR ---
ICU/DIRECTOR NURSING SERVICE PT WAS TURNED AND REPOSITIONED FOR COMFORT AND CARE. PT TOLERATING CURRENT VENT SETTINGS WITH SATURATION AT 100%. NO ACUTE DISTRESS SEEN AT THIS TIME.
[2019-10-05] MEDS ORDERED: DEXTROSE 50%-WATER 50 ML DISP.SYRIN IV PRN ×2 (02:00→08:00)
--- NOTE | 2019-10-05 02:20 | NUR ---
ICU/LOSS PREVENTION AUDITOR PT WAS GIVEN AM CARE, ALONG WITH ORAL CARE AT THIS TIME. PT TOLERATED THIS WELL, PT REMAINS ON CURRENT VENT SETTINGS WITH SATURATION AT 100%. PT WAS THEN TURNED AND REPOSITIONED FOR COMFORT AND CARE. WILL CONTINUE TO MONITOR THIS PT.
--- NOTE | 2019-10-05 04:20 | NUR ---
ICU/UI ARCHITECT AM LABS WERE DONE ALONE WITH CHEST XRAY. AWAITING FOR ANY ABNORMAL RESULTS.
[2019-10-05 04:24] LABS: BASOPHILS # (AUTO) 0.1 /CMM (0.0-0.2); BASOPHILS % (AUTO) 0.6 % (0.0-2.0); HEMATOCRIT 36 % (33-45); HEMOGLOBIN 11.4 g/dL (11.5-14.8); LYMPHOCYTES # (AUTO) 0.7 /CMM (0.8-4.8); LYMPHOCYTES % (AUTO) 5.7 % (20.0-44.0); MEAN CORPUSCULAR HGB CONC 31 g/dl (31.0-36.0); MEAN CORPUSCULAR VOLUME 93 fL (82-100); MONOCYTES # (AUTO) 0.7 /CMM (0.1-1.30); MONOCYTES % (AUTO) 5.7 % (2.0-12.0); PLATELET COUNT (AUTO) 194 /CMM (150-450); RED BLOOD CELL COUNT(AUTO) 3.92 MIL/uL (4.0-5.2); WHITE BLOOD COUNT (AUTO) 12.5 K/uL (4.3-11.0)
[2019-10-05 04:30] LABS: CALCIUM, SERUM 9.1 mg/dL (8.5-10.1); CREATININE 0.9 mg/dL (0.6-1.3); MAGNESIUM 1.9 mg/dL (1.8-2.4); POTASSIUM 4.1 mmol/L (3.5-5.1)
[2019-10-05 04:53] LABS: PHOSPHORUS 0.5 mg/dL (2.5-4.9)
[2019-10-05] MEDS ORDERED: Sodium Phosphate 30 MMOL in IV D5W 250 ML IV ONE (05:00)
--- NOTE | 2019-10-05 05:01 | NUR ---
ICU/RN CAMP CALLED FOR CRITICAL LAB VALUE OF PHOSPHORUS 0.5, DR GUADALUPE SAID TO GIVE SODIUM PHOSPHORUS 40MEQ. NURSING BANKING OFFICER CALLED TO [employer] [employer] DEPARTMENT SUPERVISOR PHARMACY DUE TO THE CRITICAL LAB
[2019-10-05] MEDS: BLOOD SUGAR DIAGNOSTIC 1 EACH STRIP IN SCH ×3 (06:03→17:36)
--- NOTE | 2019-10-05 06:10 | NUR ---
ICU/CORE FILER IVP OF SODIUM PHOS WAS HANG UP BY CHARGE NURSE. WILL RECHECK PHOS AFTER IVP IN 4 HOURS.
[2019-10-05] MEDS: INSULIN REGULAR, HUMAN 100 UNIT/ML 3 ML VIAL SQ PRN ×3 (06:18→17:37)
--- NOTE | 2019-10-05 06:20 | NUR ---
ICU/JUVENILE DETENTION OFFICER PT WAS TURNED AND REPOSITIONED FOR COMFORT AND CARE. PT TOLERATING CURRENT VENT SETTINGS WITH SATURATION AT 100%. NO ACUTE DISTRESS SEEN AT THIS TIME.
[2019-10-05] MEDS: ALBUTEROL FS 2.5 MG/0.5 ML VIAL.NEB NEB SCH ×4 (07:44→19:49)
[2019-10-05] MEDS: IPRATROPIUM NEB FS 0.5 MG/2.5 ML AMPUL.NEB NEB SCH ×4 (07:44→19:49)
[2019-10-05] MEDS ORDERED: INSULIN REGULAR, HUMAN 100 UNIT/ML 3 ML VIAL SQ PRN (08:00)
--- NOTE | 2019-10-05 08:00 | NUR ---
RISK CONTROL PRODUCT LIABILITY DIRECTOR: pt is sedated well with 60 mcg/kg/m Diprivan, reactive by pain stimuli, large amount of ETT suction/bloody, O2sat. over 96%, FiO2 40%, no SOB, SR, SBP over 100 below 150, phos was 0.5, getting NaPhos IV, repeat phos at 12.00, T 100.0, was in room/updated/see new orders/spoke with pt family
[2019-10-05 08:28] LABS: SITE, ABG Right Radial; VT, ABG 600 mL
--- NOTE | 2019-10-05 08:40 | NUR ---
AMUSEMENT PARK WORKER: , were in room, updated with pt.current condition, VS, sedation, labs, meds, orders
[2019-10-05 08:55] LABS: IRON, SERUM 38 ug/dl (50-175); TOTAL IRON BINDING CAPACITY 152 ug/dl (250-450)
[2019-10-05] MEDS ORDERED: TIOTROPIUM BROMIDE 6 CAP/BOX CAP.W.DEV IH SCH (09:00)
--- NOTE | 2019-10-05 09:00 | NUR ---
EDGE TRIMMER: pt. is getting NaPhos IV, is aware, pharmacy called for verification, confirmed ok to give 3 doses of neutraphos GT, repeat Phos lab at 11.00
[2019-10-05] MEDS: INSULIN GLARGINE, 100 UNIT/ML CARTRIDGE SQ SCH ×2 (09:02→21:31)
[2019-10-05] MEDS: ATORVASTATIN 40 MG TABLET PO SCH (09:07)
[2019-10-05] MEDS: GABAPENTIN 300 MG CAPSULE PO SCH ×3 (09:07→16:10)
[2019-10-05] MEDS: FUROSEMIDE 40 MG/4 ML VIAL IV SCH ×3 (09:08→16:10)
[2019-10-05] MEDS: ASPIRIN EC 81 MG TABLET.DR PO SCH (09:08)
[2019-10-05] MEDS: methylPREDNISolone SOD SUCC 40 MG/ML VIAL IV SCH ×2 (09:08→16:10)
[2019-10-05] MEDS: BENAZEPRIL HCL 20 MG TABLET PO SCH (09:10)
[2019-10-05] MEDS: NEUTRA PHOS 1 POWD.PACKET GT SCH ×3 (09:11→16:10)
[2019-10-05] MEDS: NITROGLYCERIN 30 GM TUBE TP SCH ×2 (09:12→21:30)
[2019-10-05] MEDS: ENOXAPARIN SODIUM 40 MG/0.4 ML DISP.SYRIN SQ SCH (09:12)
[2019-10-05 09:13] LABS: FERRITIN 192 ng/mL (8-388)
--- NOTE | 2019-10-05 11:05 | NUR ---
WHOLESALE MANAGER: is in room, updated with pt.sedation, VS, vent setting, suction amount/bloody, I/O, ordered: Tv 550
--- NOTE | 2019-10-05 11:10 | NUR ---
NOZZLEMAN: T 100.8 now, paged for Tylenol order, cooling measures initiated
[2019-10-05 11:46] LABS: APPEARANCE,URINE CLEAR (CLEAR); BILIRUBIN,URINE NEGATIVE (NEGATIVE); BLOOD, URINE SMALL Ery/uL (NEGATIVE); COLOR,URINE YELLOW (YELLOW); KETONES,URINE NEGATIVE (NEGATIVE); LEUKOCYTE ESTERASE ,URINE NEGATIVE (NEGATIVE); NITRITE, URINE NEGATIVE (NEGATIVE); PH,URINE 8.5 (5.0-8.0); PROTEIN,URINE NEGATIVE (NEGATIVE); UGLUCOSE NEGATIVE (NEGATIVE); UROBILINOGEN,URINE 0.2 EU/dL (0.2)
[2019-10-05 11:47] LABS: CREATININE, URINE 51.2 MG/DL (30.0-125.0)
[2019-10-05] MEDS: ACETAMINOPHEN 650 MG/20.3 ML UDC NG PRN (11:54)
[2019-10-05] MEDS ORDERED: BLOOD SUGAR DIAGNOSTIC 1 EACH STRIP IN SCH (12:00)
--- NOTE | 2019-10-05 13:15 | NUR ---
QUALITY SYSTEMS SPECIALIST: LEI Stratton inserted R.arm PICC, ok to use.
--- NOTE | 2019-10-05 13:15 | NUR ---
HYDRO EXCAVATION OPERATOR: Jaspreet
[2019-10-05] MEDS: AZITHROMYCIN 250 MG TABLET PO SCH (13:16)
--- NOTE | 2019-10-05 14:47 | NUR ---
MOTORS AND CONTROLS TESTER: pt son called and updated
--- NOTE | 2019-10-05 16:45 | NUR ---
RT NOTES; Pt. 59 Y old female rec. @ 0700 am orally intubated ETT # 7.5 @ 23 lip line secured, on ventilator with noted settings, alarms are set and functional, equal chest rise noted. bilaterally rales b/s and sux's for mod. amt of thick yellow secretions ( some pinkish notes ) no distress t/o day shift. Ventilator changes done per dr. Christopher order. ( RR 12 & VT 550 ) tolerated well, HHN tx's given inline q4 and no adverse reaction noted. ambu bag remain at the bedside. HME changed. continue to monitor and report will pass to pm shift. Addendum: 10/05/19 at 1650 by ANÍBAL MONTALVO RT Amended: Links added.
--- NOTE | 2019-10-05 16:57 | NUR ---
PROCUREMENT BUYER: pt. is sedated well, RR 12, reactive for pain stimuli, continue sedation with 45 mcg/kg/m Diprivan gtt, SR, SBP 95-110, O2sat.97-100%, T 98.9 now, phos level 3.8, all PM/bedbath/skin care done, less suction amount secretion, no bloody now, under restrains skin: intact, no redness, no edema, waiting Berimaxx bed
--- NOTE | 2019-10-05 19:45 | NUR ---
BOOK REVIEWER RCD PT W/DX COPD EXACERBATION; PT IS SEDATED ON PROPOFOL AT 40 MCG/KG/MIN; PT WITH BSWR IN PLACE; WILL MONITOR PT BEHAVIOR TO ASSESS IF RESTRAINTS CAN BE REMOVED. ST ON MONITOR. INTUBATED 7.5 @ 23 W/VENT SETTINGS AC 12 550 40% +5; PT HAS MIN SECRETIONS NOTED. SANTIAGO CATH DRAINING LARGE AMOUNT OF YELLOW URINE. RANDY PICC LINE PATENT AND WITH GOOD BLOOD RETURN. CONTINUE TO MONITOR.
[2019-10-05] MEDS ORDERED: IV NS 0.9% 250 ML IV PRN (20:00)
--- NOTE | 2019-10-05 22:00 | NUR ---
STEAM CLEANING MACHINE OPERATOR PT SEDATED ON 40 MCG/KG/MIN NO DISTRESS NOTED HOWEVER UPON ADLS PT WAKES UP EASILY AND ATTEMPTS TO MOVE ARMS; WILL MAINTAIN BSWR AT THIS TIME. CONTINUE TO MONITOR.
--- NOTE | 2019-10-05 23:52 | NUR ---
RECEIVED PT INTUBATED ON VENT. NO RESP DISTRESS. PT TOLERATING VENT SETTINGS. SX'D FOR SML AMT OF TINGED THIN SECRETIONS. ETT SECURE, CUFF APPLIANCE MECHANIC. VENT ALARMS SET AND AUDIBLE. AMBU BAG AT BEDSIDE. CONTINUE [facility] VENT SUPPORT. Addendum: 10/05/19 at 2353 by LEVI PETERSEN RT Amended: Links added.
[2019-10-06] VITALS (24 sets, daily range): BP systolic 115–162; BP diastolic 64–96
[2019-10-06] MEDS: PROPOFOL 100 ML IV PRN ×4 (00:30→08:34)
[2019-10-06] MEDS: BLOOD SUGAR DIAGNOSTIC 1 EACH STRIP IN SCH ×2 (00:30→05:40)
[2019-10-06] MEDS: INSULIN REGULAR, HUMAN 100 UNIT/ML 3 ML VIAL SQ PRN ×4 (00:31→17:13)
[2019-10-06 04:25] LABS: BASOPHILS # (AUTO) 0.1 /CMM (0.0-0.2); BASOPHILS % (AUTO) 0.5 % (0.0-2.0); HEMATOCRIT 35 % (33-45); HEMOGLOBIN 11.1 g/dL (11.5-14.8); LYMPHOCYTES # (AUTO) 0.9 /CMM (0.8-4.8); LYMPHOCYTES % (AUTO) 7.4 % (20.0-44.0); MEAN CORPUSCULAR HGB CONC 32 g/dl (31.0-36.0); MEAN CORPUSCULAR VOLUME 90 fL (82-100); MONOCYTES % (AUTO) 8.5 % (2.0-12.0); NEUTROPHILS # (AUTO) 9.9 /CMM (1.8-8.9); NEUTROPHILS % (AUTO) 83.6 % (43.0-81.0); PLATELET COUNT (AUTO) 220 /CMM (150-450); RED BLOOD CELL COUNT(AUTO) 3.83 MIL/uL (4.0-5.2); WHITE BLOOD COUNT (AUTO) 11.8 K/uL (4.3-11.0)
[2019-10-06 04:40] LABS: ALBUMIN 2.3 g/dL (3.4-5.0); BILIRUBIN,TOTAL 0.2 mg/dL (0.2-1.0); CALCIUM, SERUM 8.3 mg/dL (8.5-10.1); CREATININE 0.8 mg/dL (0.6-1.3); MAGNESIUM 2.2 mg/dL (1.8-2.4); PHOSPHORUS 4.1 mg/dL (2.5-4.9); POTASSIUM 3.8 mmol/L (3.5-5.1)
--- NOTE | 2019-10-06 07:12 | NUR ---
AIR POLLUTION ENGINEER INITIAL NOTES Rec'd pt on bed, not in any distress, sedated. On MV via ETT, sating at 100%. SR on telemonitor. RANDY PICC line w/ Propofol x 40 mcg/kg/min infusing well. Has R AC G18, SL. Has FC draining to BSB w/ yellowish UOP. B soft wrist restraints on for pt safety. Bed in lowest & locked pos. Call light placed w/in reach. Will cont to monitor & attend pt needs.
[2019-10-06] MEDS: ALBUTEROL FS 2.5 MG/0.5 ML VIAL.NEB NEB SCH ×4 (08:12→19:48)
[2019-10-06] MEDS: IPRATROPIUM NEB FS 0.5 MG/2.5 ML AMPUL.NEB NEB SCH ×4 (08:12→19:48)
[2019-10-06] MEDS: methylPREDNISolone SOD SUCC 40 MG/ML VIAL IV SCH ×2 (08:32→17:02)
[2019-10-06] MEDS: ASPIRIN EC 81 MG TABLET.DR PO SCH (08:32)
[2019-10-06] MEDS: GABAPENTIN 300 MG CAPSULE PO SCH ×3 (08:33→17:02)
[2019-10-06] MEDS: ATORVASTATIN 40 MG TABLET PO SCH (08:33)
[2019-10-06] MEDS: FUROSEMIDE 40 MG/4 ML VIAL IV SCH ×3 (08:33→17:03)
[2019-10-06] MEDS: ENOXAPARIN SODIUM 40 MG/0.4 ML DISP.SYRIN SQ SCH (08:34)
[2019-10-06] MEDS: INSULIN GLARGINE, 100 UNIT/ML CARTRIDGE SQ SCH ×2 (08:35→21:32)
--- NOTE | 2019-10-06 08:45 | NUR ---
Pt seen & examined by Dr. White, updated about pt status.
[2019-10-06] MEDS: BENAZEPRIL HCL 20 MG TABLET PO SCH (08:57)
[2019-10-06] MEDS: NITROGLYCERIN 30 GM TUBE TP SCH ×2 (08:57→21:26)
[2019-10-06] MEDS ORDERED: Z GUARD REMEDY 4 OZ OINT TP PRN (09:00)
[2019-10-06] MEDS ORDERED: DC PROPOFOL WHEN EXTUBATED XX PRN (09:00)
--- NOTE | 2019-10-06 09:00 | NUR ---
Pt seen & examined by Dr. Haro, updated about pt status.
--- NOTE | 2019-10-06 09:30 | NUR ---
Dr. Christopher updated about pt status w/ orders to do weaning trial today - SIMV 4, PS 15, PEEP 5. ABG in an hour. RT made aware.
[2019-10-06 10:45] LABS: ABG BASE EXCESS 12.3 mmol/L; ABG OXYGEN SATURATION 95.5 % (92.0-98.5); ABG PCO2 42.9 mmHg (35.0-45.0); ABG PH 7.543 (7.350-7.450); ABG PO2 75.5 mmHg (75.0-100.0); AaDO2 160.4 mmHg; COHb 0.2 % (0.5-1.5); MetHb 0.5 % (0.0-1.5); O2Hb 94.8 % (94.0-97.0); SITE, ABG Right Radial
--- NOTE | 2019-10-06 10:50 | NUR ---
Pt extubated per Dr. Christopher's order. ABG reviewed by . RT aware. Pt placed on NC at 3lpm. Pt tolerated well. Per Dr. Christopher, may start on cardiac diet.
--- NOTE | 2019-10-06 10:50 | NUR ---
RT PER DR VELAZQUEZ PATIENT WAS WEANED AND EXTUBATED. PATIENT AWAKE AND ALERT AND PLACED ON SUPPLEMENTAL O2. Addendum: 10/06/19 at 1109 by BERTIN QUIROGA RT Amended: Links added.
--- NOTE | 2019-10-06 11:35 | NUR ---
Dr. Haro made aware that pt got extubated today. Pt requesting for stool softener. Per , may start on Colace 250mg PO daily & MOM 30cc q6h PRN.
--- NOTE | 2019-10-06 11:49 | NUR ---
BS 223. Pt started on cardiac diet. Per Dr. Haro may change SSI to moderate ACHS.
[2019-10-06] MEDS ORDERED: MAGNESIUM HYDROXIDE 30 ML UDC PO PRN (12:00)
[2019-10-06] MEDS ORDERED: DEXTROSE 50%-WATER 50 ML DISP.SYRIN IV PRN (12:00)
[2019-10-06] MEDS: BLOOD SUGAR DIAGNOSTIC 1 EACH STRIP VI SCH ×3 (12:03→21:27)
[2019-10-06] MEDS: DOCUSATE SODIUM 250 MG CAPSULE PO SCH (12:03)
[2019-10-06] MEDS: AZITHROMYCIN 250 MG TABLET PO SCH (13:22)
--- NOTE | 2019-10-06 18:19 | NUR ---
Family reported that pt's [employer] Cellphone is missing. Item was listed on pt's belonging list upon admission. Per dtr, they did not bring her cellphone at home, only pt's clothes. Nothing was found in pt's current room. Missing item was reported to the [facility].
--- NOTE | 2019-10-06 18:31 | NUR ---
SHOE DYER CLOSING NOTES Pt resting comfortably on her bed, A/O x 3. Tolerating NC at 3lpm, still has productive cough - sputum sent to lab. Remains SR/ST on telemonitor. RANDY PICC line & R AC G18 kept patent & intact w/ no s/sx of infection/infiltration noted. FC kept draining to BSB w/ yellowish UOP. Bed in lowest & locked pos. Call light placed w/in reach. Will endorse to PM RN for BRYAN.
--- NOTE | 2019-10-06 19:30 | NUR ---
MANAGER STRATEGIC DEVELOPMENT RCD PT W/DX COPD. PT IS A/O x3 W/SOME FORGETFULNESS. NSR ON MONITOR. ON O2 3L NC. EDUCATED ON THE NEED FOR BIPAP LATER IN THE EVENING; PT VERBALIZED UNDERSTANDING. ROUGH DRY SKIN TO BLE WHICH PT REQUESTED TO KEPT COVERED SO THAT PEOPLE WILL NOT SEE IT. REQUESTED PTS WISHES AND MAINTAINED PRIVACY. RANDY PICC LINE SALINE LOCK PATENT AND WITH GOOD BLOOD RETURN.
--- NOTE | 2019-10-06 20:00 | NUR ---
COMMUNICATIONS MEDIA PROFESSOR PT REPOSITIONED BUT EXPRESSED ANXIETY IF SHE WAS NOT IN SITTING POSITION IN BED. ENCOURAGE TURNING NEEDED. CONTINUE TO MONITOR.
[2019-10-06] MEDS: *INSULIN REGULAR(HUMULIN R)HUM 100 UNIT/ML VIAL SQ PRN (21:31)
[2019-10-06] MEDS ORDERED: IPRATROPIUM NEB FS 0.5 MG/2.5 ML AMPUL.NEB NEB PRN (23:30)
[2019-10-06] MEDS: ALBUTEROL FS 2.5 MG/0.5 ML VIAL.NEB NEB PRN (23:30)
--- NOTE | 2019-10-06 23:30 | NUR ---
PARALEGAL SECRETARY PT C/O SOB W/WHEEZING NOTED; CALL PLACED TO MD WITH ORDER FOR PRN BREATHING TREATMENT. CONTINUE TO MONITOR.
--- NOTE | 2019-10-06 23:44 | NUR ---
PT PLACED ON NOC BIPAP. RN NOTIFIED. Addendum: 10/06/19 at 2344 by LEVI PETERSEN RT Amended: Links added.
[2019-10-07] VITALS (21 sets, daily range): BP systolic 113–157; BP diastolic 26–97
[2019-10-07 05:09] LABS: BASOPHILS # (AUTO) 0.1 /CMM (0.0-0.2); HEMATOCRIT 38 % (33-45); HEMOGLOBIN 11.9 g/dL (11.5-14.8); LYMPHOCYTES # (AUTO) 1.4 /CMM (0.8-4.8); LYMPHOCYTES % (AUTO) 11.4 % (20.0-44.0); MEAN CORPUSCULAR HGB CONC 31 g/dl (31.0-36.0); MEAN CORPUSCULAR VOLUME 91 fL (82-100); MONOCYTES # (AUTO) 1.2 /CMM (0.1-1.30); MONOCYTES % (AUTO) 9.7 % (2.0-12.0); NEUTROPHILS # (AUTO) 9.3 /CMM (1.8-8.9); NEUTROPHILS % (AUTO) 77.9 % (43.0-81.0); PLATELET COUNT (AUTO) 247 /CMM (150-450); RED BLOOD CELL COUNT(AUTO) 4.18 MIL/uL (4.0-5.2)
[2019-10-07 05:22] LABS: CALCIUM, SERUM 8.5 mg/dL (8.5-10.1); CREATININE 0.9 mg/dL (0.6-1.3); MAGNESIUM 2.4 mg/dL (1.8-2.4); PHOSPHORUS 2.7 mg/dL (2.5-4.9); POTASSIUM 3.5 mmol/L (3.5-5.1)
--- NOTE | 2019-10-07 06:00 | NUR ---
STEEL BOX TOE INSERTER PT REQUESTED TO BE TAKEN OFF BIPAP; PLACED ON O2 3L VIA NC. CONTINUE TO MONITOR.
--- NOTE | 2019-10-07 06:02 | NUR ---
PT TAKEN OFF BIPAP AND PLACED ON 3L NC. RN NOTIFIED.
[2019-10-07] MEDS: ALBUTEROL FS 2.5 MG/0.5 ML VIAL.NEB NEB SCH ×4 (06:06→19:53)
[2019-10-07] MEDS: IPRATROPIUM NEB FS 0.5 MG/2.5 ML AMPUL.NEB NEB SCH ×4 (06:06→19:53)
--- NOTE | 2019-10-07 06:43 | NUR ---
DIAGNOSTIC RADIOLOGIST ENCOURAGE PT TO BE REPOSITIONED HOWEVER SHE MOSTLY STAYED IN THE SITTING POSITION IN BED; PT EXPRESSED ANXIETY WHEN NOT SITTING UPRIGHT IN BED. CONTINUE TO MONITOR.
--- NOTE | 2019-10-07 07:47 | NUR ---
WOUND CARE CONSULT: PT PRESENTS WITH VERY DRY THICKENED SKIN ON LOWER LEGS AND FEET WELL RASH TO BREASTFOLDS, ABDOMINAL AND GROIN FOLDS. RECOMMENDATIONS MADE FOR SKIN CARE AND PROTECTION. PT DEMONSTRATES ABILITY TO TURN AND REPOSITION IN BED. PT IS CONTINENT AT THIS TIME WITH JACK. WILL SEE PRN. ARAGON IN AGREEMENT WITH PLAN OF CARE. Addendum: 10/07/19 at 0749 by OLIVE LAN WNDNU Amended: Links added.
[2019-10-07] MEDS: BLOOD SUGAR DIAGNOSTIC 1 EACH STRIP VI SCH ×4 (07:51→21:47)
[2019-10-07] MEDS: *INSULIN REGULAR(HUMULIN R)HUM 100 UNIT/ML VIAL SQ PRN ×3 (07:54→21:46)
[2019-10-07] MEDS: ENOXAPARIN SODIUM 40 MG/0.4 ML DISP.SYRIN SQ SCH (08:11)
[2019-10-07] MEDS: INSULIN GLARGINE, 100 UNIT/ML CARTRIDGE SQ SCH ×2 (08:11→21:45)
[2019-10-07] MEDS: methylPREDNISolone SOD SUCC 40 MG/ML VIAL IV SCH ×2 (08:11→17:19)
[2019-10-07] MEDS: FUROSEMIDE 40 MG/4 ML VIAL IV SCH ×3 (08:11→17:19)
[2019-10-07] MEDS: ASPIRIN EC 81 MG TABLET.DR PO SCH (08:12)
[2019-10-07] MEDS: DOCUSATE SODIUM 250 MG CAPSULE PO SCH (08:12)
[2019-10-07] MEDS: ATORVASTATIN 40 MG TABLET PO SCH (08:12)
[2019-10-07] MEDS: GABAPENTIN 300 MG CAPSULE PO SCH ×3 (08:12→17:19)
[2019-10-07] MEDS: BENAZEPRIL HCL 20 MG TABLET PO SCH (08:13)
--- NOTE | 2019-10-07 08:15 | NUR ---
ICU/RN: Dr Haro at bedside; updated on pt status. Blood glucose trends reviewed with MD and home dosage of insulin, per MD continue current regimen. Pt for physical therapy out of ICU once cleared by pulmonology for downgrade. Pt in agreement with plan of care.
--- NOTE | 2019-10-07 08:45 | NUR ---
ICU/RN: AM care, wound care rendered. Lotion applied to extremities. Pt tolerated well.
[2019-10-07] MEDS: NITROGLYCERIN 30 GM TUBE TP SCH ×2 (08:51→21:47)
[2019-10-07] MEDS: POTASSIUM CHLORIDE 20 MEQ TAB.PRT.SR PO SCH ×3 (09:15→11:06)
[2019-10-07] MEDS: MINERAL OIL/PETROLATUM,WHITE 120 GM JAR TP SCH ×2 (09:16→17:19)
[2019-10-07] MEDS: CLOTRIMAZOLE 1% 15 GM TUBE TP SCH ×2 (09:16→17:19)
--- NOTE | 2019-10-07 12:55 | NUR ---
SENIOR SOFTWARE ANALYST NOTE RECEIVED REPORT FROM ELIN SOLORIO.PATIENT IN BED.AXOX3.ON O2 VIA NASAL CANULA 3L.NO SOB NO DISTRESS NOTED.RANDY PICC LINE INTACT AND PATENT.SANTIAGO CATH DRAINING CLEAR YELLOW URINE.ON TELE MONITOR ST HR 101.BED IS LOW AND IN LOCKED POSITION.CALL LIGHT IN REACH.BED ALARM ON .SRX3.WILL CONTINUE TO MONITOR.
[2019-10-07] MEDS: AZITHROMYCIN 250 MG TABLET PO SCH (13:12)
--- NOTE | 2019-10-07 14:54 | NUR ---
RT PATIENT AWAKE, ALERT, NO SOB NOTED. VERBALLY REFUSING ABG STATING SHE KNOWS HER RIGHTS SHE CAN REFUSE. CHARGE NURSE NOTIFIED.
[2019-10-07] MEDS: INSULIN REGULAR, HUMAN 100 UNIT/ML 3 ML VIAL SQ PRN (17:21)
--- NOTE | 2019-10-07 17:43 | NUR ---
REAMING MACHINE OPERATOR NOTE REPORT GIVEN TO ALISHA WORTHINGTON FOR BRYAN.PATIENT WILL BE TRANSFERRING TO ROOM 104.
--- NOTE | 2019-10-07 18:03 | NUR ---
ELASTIC YARN TWISTERTELECOMMUNICATIONS EQUIPMENT INSTALLER NOTE PATIENT TRANSFERRED TO ROOM 104 IN STABLE CONDITION WITH ACLS PROTOCOL.NO SOB NO DISTRESS NOTED,AXOX3.ON O2 3L VIA NASAL CANULA.VSS.TOOK ALL BELONGINGS.REPORT GIVEN TO RN.IV LINES ARE INTACT AND PATENT.SANTIAGO CATH DRAINING CLEAR YELLOW URINE.
--- NOTE | 2019-10-07 18:05 | NUR ---
eyeglass frame truer Receiving Received Patient A/Ox4, on 2.5L O2 via NC, SPO2 96%, no respiratory distress noted, patient denies SOB and pain. Tele monitor attached, sinus rhythm HR 85, elevated T wave, R UA PICC line c/d/i, patent. Patient oriented to room, call light in reach, educated to report symptoms like SOB, headache, nausea, etc. Patient is requesting an expectorant because "her phlegm isn't coming up" , will endorse to DYLON RN Addendum: 10/07/19 at 1826 by VU GUTIERRES RN vitals stable , see documentation
--- NOTE | 2019-10-07 19:15 | NUR ---
CONTACT CENTER REP NOTE PATIENT RECEIVED IN BED A/O X 4 ON 2L O2 NO S/S OF RESP DISTRESS. PATIENT ON THE MONITOR SR HR 90'S. PATIENT DENIES CHEST PAIN/ SOB. PATIENT HAS SANTIAGO CATH DRAINING TO GRAVITY. PATIENT HAS RANDY PICC LINES PATENT AND INTACT NO S/S OF INFECTION OR INFECTION. PATIENT GLENDA DISCOMFORT. PATIENT REPOSITIONED. PLANS AND POC DISCUSSED WITH PATIENT, PATIENT VERBALIZED UNDERSTANDING.
[2019-10-07] MEDS ORDERED: ACETYLCYSTEINE 20% SOLN 800 MG/4 ML VIAL NEB PRN (21:30)
[2019-10-07] MEDS: ALBUTEROL FS 2.5 MG/0.5 ML VIAL.NEB NEB PRN (22:56)
[2019-10-08] VITALS: BP 100/56
[2019-10-08 04:00] VITALS: BP 119/74
[2019-10-08 06:18] LABS: BASOPHILS # (AUTO) 0.1 /CMM (0.0-0.2); BASOPHILS % (AUTO) 0.5 % (0.0-2.0); EOSINOPHILS % (AUTO) 0.1 % (0.0-6.0); HEMATOCRIT 39 % (33-45); HEMOGLOBIN 12.3 g/dL (11.5-14.8); LYMPHOCYTES # (AUTO) 1.7 /CMM (0.8-4.8); LYMPHOCYTES % (AUTO) 14.2 % (20.0-44.0); MEAN CORPUSCULAR HGB CONC 31 g/dl (31.0-36.0); MEAN CORPUSCULAR VOLUME 91 fL (82-100); MONOCYTES # (AUTO) 1.2 /CMM (0.1-1.30); MONOCYTES % (AUTO) 9.8 % (2.0-12.0); NEUTROPHILS % (AUTO) 75.4 % (43.0-81.0); PLATELET COUNT (AUTO) 257 /CMM (150-450); RED BLOOD CELL COUNT(AUTO) 4.32 MIL/uL (4.0-5.2)
[2019-10-08 06:48] LABS: ALBUMIN 2.6 g/dL (3.4-5.0); BILIRUBIN,TOTAL 0.3 mg/dL (0.2-1.0); CALCIUM, SERUM 8.7 mg/dL (8.5-10.1); CREATININE 0.7 mg/dL (0.6-1.3); MAGNESIUM 2.6 mg/dL (1.8-2.4); PHOSPHORUS 1.9 mg/dL (2.5-4.9); POTASSIUM 3.9 mmol/L (3.5-5.1); TOTAL PROTEIN, SERUM 7.7 g/dL (6.4-8.2)
[2019-10-08] MEDS: BLOOD SUGAR DIAGNOSTIC 1 EACH STRIP VI SCH ×4 (07:42→22:09)
[2019-10-08] MEDS: IPRATROPIUM NEB FS 0.5 MG/2.5 ML AMPUL.NEB NEB SCH ×4 (07:53→19:22)
[2019-10-08] MEDS: ALBUTEROL FS 2.5 MG/0.5 ML VIAL.NEB NEB SCH ×4 (07:53→19:22)
[2019-10-08 08:00] VITALS: BP 125/69
[2019-10-08] MEDS: BENAZEPRIL HCL 20 MG TABLET PO SCH (08:20)
[2019-10-08] MEDS: GABAPENTIN 300 MG CAPSULE PO SCH ×3 (08:20→16:55)
[2019-10-08] MEDS: ATORVASTATIN 40 MG TABLET PO SCH (08:20)
[2019-10-08] MEDS: DOCUSATE SODIUM 250 MG CAPSULE PO SCH (08:21)
[2019-10-08] MEDS: ASPIRIN EC 81 MG TABLET.DR PO SCH (08:21)
[2019-10-08] MEDS: FUROSEMIDE 40 MG/4 ML VIAL IV SCH (08:22)
[2019-10-08] MEDS: methylPREDNISolone SOD SUCC 40 MG/ML VIAL IV SCH ×2 (08:23→16:54)
[2019-10-08] MEDS: NEUTRA PHOS 1 POWD.PACKET PO SCH ×5 (08:23→16:56)
[2019-10-08] MEDS: CLOTRIMAZOLE 1% 15 GM TUBE TP SCH ×2 (08:24→16:55)
[2019-10-08] MEDS: MINERAL OIL/PETROLATUM,WHITE 120 GM JAR TP SCH ×2 (08:24→16:55)
[2019-10-08] MEDS: ENOXAPARIN SODIUM 40 MG/0.4 ML DISP.SYRIN SQ SCH (08:37)
[2019-10-08] MEDS: INSULIN GLARGINE, 100 UNIT/ML CARTRIDGE SQ SCH ×2 (08:39→22:06)
[2019-10-08] MEDS: FUROSEMIDE 100 MG/10 ML VIAL IV SCH ×3 (09:37→16:54)
[2019-10-08] MEDS ORDERED: POTASSIUM CHLORIDE 20 MEQ TAB.PRT.SR PO SCH (10:00)
--- NOTE | 2019-10-08 12:10 | NUR ---
RN NOTE PATIENT AWAKE AND ALERT. AMBULATORY FLUIDS RUNNING, FAMILY AT BEDSIDE. CALL LIGHT WITHIN REACH BED IN LOW POSITION, ALL NEEDS MET AT THIS TIME. PT SAW PATIENT AND ABLE TO AMBULATE WITH WALKER AND ASSISTANCE. CASE MANAGMENT NOTIFED. WALKER WILL BE PROVIDED TO PATIENT. INCIDENT REPORT DONE YESTERDAY FOR LOST COMPLAINT BY MELBA WORTHINGTON. OPTICS TECHNICAL OFFICER NOTIFIED
[2019-10-08] MEDS: AZITHROMYCIN 250 MG TABLET PO SCH (12:43)
[2019-10-08] MEDS: NITROGLYCERIN 30 GM TUBE TP SCH ×2 (13:22→21:02)
[2019-10-08 14:00] VITALS: BP 120/70
[2019-10-08 16:00] VITALS: BP 129/76
[2019-10-08] MEDS ORDERED: BISACODYL (5 MG) 5 MG TABLET.DR PO PRN (17:00)
--- NOTE | 2019-10-08 18:44 | NUR ---
RN CLOSING NOTE BERNARDO ALERT ORIENTED AND INVOLVED IN HER CARE. WALKER PROVIDED BY HOSPITAL AT BEDSIDE. COMMODE AT BEDSIDE PATIENT HAD BOWL MOVEMENT TODAY IN EVENING HARD STOOL X1. PATIENT HAS PUT OUT OVER 3000ML F/C, PRODUCTIVE COUGH STILL PRESENT OXYGEN REMAINS OVER 95% ON 2 LITERS NASAL CANNULA. NO S/S OF RESPIRATORY DISTRESS. TOLERATED ALL MEDICATIONS WELL. CONTINUE TO MONITOR. SKIN CARE PROVIDED BY RN INTACT DRY SKIN CREAM APPLIED TO LEGS AND BREASTFOLD AREA. CALL LIGHT WITHIN REACH BED IN LOW POISITION ALL NEEDS MET CONTINUE HOSPITALIZATION.
--- NOTE | 2019-10-08 19:40 | NUR ---
RN OPENING NOTES RECEIVED PATIENT AT BED SIDE. A/O X 4. PATIENT ABLE TO VERBALIZE NEEDS. NO SIGNS OF RESPIRATORY DISTRESS. BREATHING EVEN AND UNLABORED, DENIES SHORTNESS OF BREATH. NO COMPLAINTS OF PAIN OR DISCOMFORT AT THIS TIME. IV SITE INTACT, PATENT, NO SIGNS OF INFECTION/INFILTRATION NOTED. SAFETY PRECAUTIONS IMPLEMENTED; CALL LIGHT WITHIN REACH, BED LOW, BED LOCKED, BILATERAL UPPER SIDE RAILS UP. WILL CONTINUE TO MONITOR.
[2019-10-08 20:00] VITALS: BP 109/67
[2019-10-08] MEDS: ACETAMINOPHEN 650 MG/20.3 ML UDC NG PRN (21:03)
[2019-10-08] MEDS: *INSULIN REGULAR(HUMULIN R)HUM 100 UNIT/ML VIAL SQ PRN (22:07)
[2019-10-08] MEDS: IPRATROPIUM NEB FS 0.5 MG/2.5 ML AMPUL.NEB NEB PRN (22:08)
[2019-10-08] MEDS: ALBUTEROL FS 2.5 MG/0.5 ML VIAL.NEB NEB PRN (22:08)
--- NOTE | 2019-10-09 04:08 | NUR ---
RT NOTE: RECEIVED PT ON 2 L/M VIA NC. PLACED PT ON ORDERED NOC BIPAP SETTINGS. NO RESPIRATORY DISTRESS NOTED. TXS GIVEN ORDERED WITH NO ADVERSE REACTIONS NOTED. EMERGENCY EQUIPMENT @ BEDSIDE. ALARMS CHECKED AND ON.
[2019-10-09 04:45] VITALS: BP 134/80
[2019-10-09] MEDS: ALBUTEROL FS 2.5 MG/0.5 ML VIAL.NEB NEB PRN (05:37)
[2019-10-09] MEDS: IPRATROPIUM NEB FS 0.5 MG/2.5 ML AMPUL.NEB NEB PRN (05:37)
[2019-10-09 06:25] LABS: CALCIUM, SERUM 8.5 mg/dL (8.5-10.1); CREATININE 0.8 mg/dL (0.6-1.3); MAGNESIUM 2.4 mg/dL (1.8-2.4); PHOSPHORUS 3.1 mg/dL (2.5-4.9); POTASSIUM 3.6 mmol/L (3.5-5.1)
--- NOTE | 2019-10-09 06:41 | NUR ---
RN CLOSING NOTES PATIENT IS CURRENTLY ASLEEP IN BED, EASILY AWAKENED. PATIENT ABLE TO VERBALIZE NEEDS. NO SIGNS OF RESPIRATORY DISTRESS. BREATHING EVEN AND UNLABORED, DENIES SHORTNESS OF BREATH. NO COMPLAINTS OF PAIN OR DISCOMFORT AT THIS TIME. SANTIAGO INTACT. IV SITE RANDY PICC LINE INTACT, PATENT, NO SIGNS OF INFECTION/INFILTRATION NOTED, FLUSHED. ALL DUE MEDICATIONS GIVEN WITH NO ADVERSE EFFECTS. ALL NEEDS MET ON SHIFT. SAFETY PRECAUTIONS IMPLEMENTED; CALL LIGHT WITHIN REACH, BED LOW, BED LOCKED, BILATERAL UPPER SIDE RAILS UP. WILL ENDORSE TO DAY SHIFT NURSE FOR CONTINUITY OF CARE.
[2019-10-09 07:25] LABS: BASOPHILS # (AUTO) 0.1 /CMM (0.0-0.2); BASOPHILS % (AUTO) 0.4 % (0.0-2.0); EOSINOPHILS % (AUTO) 0.8 % (0.0-6.0); HEMATOCRIT 40 % (33-45); HEMOGLOBIN 12.5 g/dL (11.5-14.8); LYMPHOCYTES # (AUTO) 2.1 /CMM (0.8-4.8); LYMPHOCYTES % (AUTO) 18.1 % (20.0-44.0); MEAN CORPUSCULAR HGB CONC 31 g/dl (31.0-36.0); MEAN CORPUSCULAR VOLUME 91 fL (82-100); MONOCYTES # (AUTO) 1.2 /CMM (0.1-1.30); MONOCYTES % (AUTO) 10.5 % (2.0-12.0); NEUTROPHILS # (AUTO) 8.3 /CMM (1.8-8.9); NEUTROPHILS % (AUTO) 70.2 % (43.0-81.0); PLATELET COUNT (AUTO) 257 /CMM (150-450); RED BLOOD CELL COUNT(AUTO) 4.41 MIL/uL (4.0-5.2); WHITE BLOOD COUNT (AUTO) 11.8 K/uL (4.3-11.0)
[2019-10-09] MEDS: BLOOD SUGAR DIAGNOSTIC 1 EACH STRIP VI SCH ×3 (07:30→16:41)
[2019-10-09] MEDS: ALBUTEROL FS 2.5 MG/0.5 ML VIAL.NEB NEB SCH ×3 (07:58→15:46)
[2019-10-09] MEDS: IPRATROPIUM NEB FS 0.5 MG/2.5 ML AMPUL.NEB NEB SCH ×3 (07:58→15:46)
[2019-10-09 08:00] VITALS: BP 116/56
[2019-10-09] MEDS: methylPREDNISolone SOD SUCC 40 MG/ML VIAL IV SCH ×2 (08:42→15:16)
[2019-10-09] MEDS: BENAZEPRIL HCL 20 MG TABLET PO SCH (08:42)
[2019-10-09] MEDS: ASPIRIN EC 81 MG TABLET.DR PO SCH (08:42)
[2019-10-09] MEDS: NITROGLYCERIN 30 GM TUBE TP SCH (08:43)
[2019-10-09] MEDS: AZITHROMYCIN 250 MG TABLET PO SCH (08:43)
[2019-10-09] MEDS: GABAPENTIN 300 MG CAPSULE PO SCH ×3 (08:43→15:17)
[2019-10-09] MEDS: DOCUSATE SODIUM 250 MG CAPSULE PO SCH (08:43)
[2019-10-09] MEDS: ATORVASTATIN 40 MG TABLET PO SCH (08:43)
[2019-10-09] MEDS: ENOXAPARIN SODIUM 40 MG/0.4 ML DISP.SYRIN SQ SCH (08:44)
[2019-10-09] MEDS: INSULIN GLARGINE, 100 UNIT/ML CARTRIDGE SQ SCH (08:48)
[2019-10-09] MEDS: CLOTRIMAZOLE 1% 15 GM TUBE TP SCH ×2 (08:57→15:17)
[2019-10-09] MEDS: MINERAL OIL/PETROLATUM,WHITE 120 GM JAR TP SCH ×2 (08:58→15:17)
[2019-10-09 10:05] VITALS: BP 116/56
--- NOTE | 2019-10-09 10:09 | NUR ---
alert, oriented, sob upon slight exertion. Wheezy throughout. Seen by CREDIT REVIEW OFFICER, still awaiting cardio input, to see whether needs LASIX or not.. Obese, compliant with PT, now out of bed, and walking with PT in the hallway, short distance
[2019-10-09] MEDS: INSULIN REGULAR, HUMAN 100 UNIT/ML 3 ML VIAL SQ PRN ×2 (11:47→18:06)
[2019-10-09] MEDS ORDERED: Nitroglycerin SL (12:30)
[2019-10-09] MEDS ORDERED: ALBU2.5V13 NEB (12:30)
[2019-10-09] MEDS ORDERED: *INS REG SQ (12:30)
[2019-10-09] MEDS ORDERED: Insulin Glargine,Hum SQ (12:30)
[2019-10-09] MEDS ORDERED: IPRA0.2S9 NEB (12:30)
[2019-10-09] MEDS ORDERED: METH4TAB3 PO (12:30)
--- NOTE | 2019-10-09 12:40 | NUR ---
seen both by pulm, and cardio, no new orders written. will continue hospitalization, requests acute rehab setting instead of going straight home, lives with daughter.. no complaint so far
--- NOTE | 2019-10-09 14:00 | NUR ---
insists ashley out, " I am ready to go to [facility]. Report given to cynthia Sherman. group home manager arranged ambulance, expected time to shredder picker would be at 1700. ashley out, picc line out, awaiting flu vaccine when heard from Riya ODOM.
[2019-10-09] MEDS ORDERED: INFLUENZA VACCINE 2019-20 0.5 ML DISP.SYRIN IM ONE (14:30)
--- NOTE | 2019-10-09 15:18 | NUR ---
flu vaccine just now given, and all meds scheduled at 1700, also administered, due to the fact of ambulance came early. PICC out after the steroid given
[2019-10-09 16:00] VITALS: BP 118/58
--- NOTE | 2019-10-09 18:10 | NUR ---
picked up by ambulance just now, it is 1811, to go to [facility], alert, oriented, appropriate, in no respiratory distress. At this time, also asked to have bs taken, 252, 12 units Regular insulin given SQ. Left the floor, at exactly 1820
== END 2019-10-09 18:20 | DRG 208 ==
LOC: ER 10:41 → TELE 11:12 → ICU 18:10 → TELE-TD 10-07 18:02 → TELE1 10-07 18:04 → MEDSG1 10-08 08:54
PROVIDERS: ADMIT Registered Nurse; ATTEND Nurse Practitioner Acute Care
PROC: 5A1945Z Respiratory Ventilation, 24-96 Consecutive Hours (ICD-10-PCS; principal; 2019-10-04)
PROC: 0BH18EZ Insertion of Endotracheal Airway into Trachea, Via Natural or Artificial Opening Endoscopic (ICD-10-PCS; 2019-10-04)
PROC: 02HV33Z Insertion of Infusion Device into Superior Vena Cava, Percutaneous Approach (ICD-10-PCS; 2019-10-05)
PROC: B548ZZA Ultrasonography of Superior Vena Cava, Guidance (ICD-10-PCS; 2019-10-05)
DX: J96.21 Acute and chronic respiratory failure with hypoxia (principal); G93.41 Metabolic encephalopathy; I50.33 Acute on chronic diastolic (congestive) heart failure; E66.2 Morbid (severe) obesity with alveolar hypoventilation; J44.1 Chronic obstructive pulmonary disease with (acute) exacerbation; E87.2 Acidosis; Z68.43 Body mass index [BMI] 50.0-59.9, adult; I11.0 Hypertensive heart disease with heart failure; E11.9 Type 2 diabetes mellitus without complications; E78.5 Hyperlipidemia, unspecified; E83.39 Other disorders of phosphorus metabolism; F17.200 Nicotine dependence, unspecified, uncomplicated; Z79.51 Long term (current) use of inhaled steroids; Z79.4 Long term (current) use of insulin; Z79.82 Long term (current) use of aspirin; Z79.899 Other long term (current) drug therapy; E11.42 Type 2 diabetes mellitus with diabetic polyneuropathy; E11.65 Type 2 diabetes mellitus with hyperglycemia; J96.22 Acute and chronic respiratory failure with hypercapnia; Z99.81 Dependence on supplemental oxygen
CPT/HCPCS: 31720; 36415; 36600; 71045-TC; 80048-TC; 80053-TC; 80076-TC; 81000-TC; 82570-TC; 82728-TC; 82803-TC; 82962-TC; 83540-TC; 83605-TC; 83690-TC; 83735-TC; 83880; 84100-TC; 84300-TC; 84478-TC; 84484-TC; 85025-TC; 85730-TC; 87040-TC; 87070-TC; 87081-TC; 87086-TC; 93307-TC; 94002-TC; 94003-TC; 94760-TC; 94799-TC; 97110-TC; 97116-TC; 97530-TC; A9563; C1751; G0378; J0330; J1650; J1815; J1940; J2920; J2930; J3490; J7030; J7050; J7060; Q2036